=== PATIENT | male | born 1940 | race African-American/Black ===

== ENCOUNTER 2019-09-20 14:56 | Inpatient (IN) | payer MEDICARE, BC ==
[~2019-09-20] VITALS: Ht 185.4 cm; Wt 89.8 kg
[2019-09-20 15:20] VITALS: BP 106/72
--- NOTE | 2019-09-20 15:27 | Emergency Room Report ---
History of Present Illness General Chief Complaint: Chest Pain Source: Patient Present Illness HPI Disclaimer: Please note that this report is being documented using [employer] technology. This can lead to erroneous entry secondary to incorrect interpretation by the dictating instrument. HPI: 79-year-old male with a past history of aortic valve cyst status post repair, perforated gastric ulcer status post repair presents for evaluation of chest and abdominal pain. Patient states for the past 3 weeks he has been having intermittent right-sided upper quadrant abdominal pain made worse by eating. Pain will also come sporadically describes a 10/10 sharp stabbing pain and a burning sensation similar to his prior gastric ulcer which was repaired over 40 years ago. States his ulcer was perforated. He reports several episodes of emesis yesterday with small bright red blood and clots. He is using Maalox and Tums but is no longer taking Pepcid. He reports a lot of stress recently. Denies changes in diet aside from decreased appetite over the past few weeks due to the abdominal pain. He is also complaining of a tightness in his chest that is worse at night when laying down. He describes any exertional dyspnea, exertional chest pain, syncope, palpitations. States he had a "cyst" removed from his aortic valve many years ago but otherwise denies aortic pathology, cardiac history. Denies recent fever, chills, nasal congestion, sore throat, diarrhea, dysuria, hematuria or flank pain. Does not take anticoagulants. PMH: Gastric ulcer, aortic valve surgery. 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 EOMI. Cardiovascular: RRR. S1 and S2 normal. No murmur appreciated Resp: Normal work of breathing. No cough, wheezing or crackles appreciated Abdomen: Abdomen is soft, nondistended. Nontender, no guarding, no rebound, negative Oswald's. Skin: Intact. No abrasions, laceration or rash over the exposed skin MSK: Normal tone and bulk. Moving all extremities. No obvious deformity. Neuro: Awake and alert. Mentating appropriately. Medical Decision Making Diagnostic Impression: Primary Impression: GI bleed Additional Impression: Cholecystitis ER Course Is an 79-year-old male presenting for evaluation of chest and abdominal pain. Differential includes was not limited to gastritis, gastroenteritis, pancreatitis, cholecystitis, gastric ulcer, duodenal ulcer, perforated ulcer, esophagitis, GERD, ACS, angina, Claudia-Starr tear, Boerhaave syndrome to name a few. He is well-appearing arrives with stable vital signs. Currently he denies abdominal pain and belly is soft. Have ordered broad work-up with labs and CT imaging of the torso to evaluate for perforated ulcer or aortic abnormalities. Anticipate the patient require admission. Treated with Protonix , IV fluids, antiemetics, Pepcid 1830: CT does not show evidence of perforated ulcer but does show possible pericholecystic stranding without radiopaque gallstones identified. Concern for cholecystitis as the patient is complaining of right upper quadrant kayli pain will obtain an ultrasound. Labs also show a Normocytic anemia at 9.0. Stool is melanotic and FOBT positive. May have a recurrent ulcer. He has been feeling lightheaded when standing recently. Chemistry shows slightly of elevated creatinine just above baseline at 1.4 with a BUN of 33. Total bili slightly elevated at 1.1. Troponin within normal limits as is lipase. Urinalysis does not show signs of acute urinary tract infection. Will admit for GI bleed to panel physician, Dr. Danielle. Laboratory Tests Test 09/20/19 15:45 09/20/19 16:10 White Blood Count 7.7 K/UL (4.8-10.8) Red Blood Count 2.89 M/UL (4.70-6.10) L Hemoglobin 9.0 G/DL (14.2-18.0) L Hematocrit 27.2 % (42.0-52.0) L Mean Corpuscular Volume 94 FL (80-99) Mean Corpuscular Hemoglobin 31.0 PG (27.0-31.0) Mean Corpuscular Hemoglobin Concent 33.0 G/DL (32.0-36.0) Red Cell Distribution Width 13.3 % (11.6-14.8) Platelet Count 225 K/UL (150-450) Mean Platelet Volume 6.6 FL (6.5-10.1) Neutrophils (%) (Auto) 78.4 % (45.0-75.0) H Lymphocytes (%) (Auto) 15.2 % (20.0-45.0) L Monocytes (%) (Auto) 5.9 % (1.0-10.0) Eosinophils (%) (Auto) 0.1 % (0.0-3.0) Basophils (%) (Auto) 0.4 % (0.0-2.0) Prothrombin Time 10.5 SEC (9.30-11.50) Prothrombin Time INR 0.9 (0.9-1.1) Activated Partial Thromboplast Time 21 SEC (23-33) L Sodium Level 136 MMOL/L (136-145) Potassium Level 4.0 MMOL/L (3.5-5.1) Chloride Level 102 MMOL/L (98-107) Carbon Dioxide Level 26 MMOL/L (21-32) Anion Gap 8 mmol/L (5-15) Blood Urea Nitrogen 33 mg/dL (7-18) H Creatinine 1.4 MG/DL (0.55-1.30) H Estimated Glomerular Filtration Rate 59.1 mL/min (>60) Glucose Level 107 MG/DL (74-106) H Calcium Level 8.2 MG/DL (8.5-10.1) L Total Bilirubin 1.1 MG/DL (0.2-1.0) H Direct Bilirubin 0.2 MG/DL (0.0-0.3) Aspartate Amino Transferase (AST) 18 U/L (15-37) Alanine Aminotransferase (ALT) 20 U/L (12-78) Alkaline Phosphatase 49 U/L (46-116) Troponin I 0.015 ng/mL (0.000-0.056) Pro-B-Type Natriuretic Peptide 82 pg/mL (0-125) Total Protein 6.0 G/DL (6.4-8.2) L Albumin 3.2 G/DL (3.4-5.0) L Globulin 2.8 g/dL Albumin/Globulin Ratio 1.1 (1.0-2.7) Lipase 75 U/L (73-393) Urine Color Pale yellow Urine Appearance Slightly cloudy Urine pH 5 (4.5-8.0) Urine Specific [place] 1.015 (1.005-1.035) Urine Protein Negative (NEGATIVE) Urine Glucose (UA) Negative (NEGATIVE) Urine Ketones 2+ (NEGATIVE) H Urine Blood Negative (NEGATIVE) Urine Nitrite Negative (NEGATIVE) Urine Bilirubin Negative (NEGATIVE) Urine Urobilinogen Normal MG/DL (0.0-1.0) Urine Leukocyte Esterase Negative (NEGATIVE) EKG Diagnostic Results EKG Time: 15:09 Rate: normal Rhythm: NSR Other Impression Sinus rhythm, normal axis, normal intervals, no ST segment changes. Rhythm Strip Diag. Results Rhythm Strip Time: 15:09 EP Interpretation: yes Rate: 70s Rhythm: NSR, no PVC's, no ectopy CT/MRI/US Diagnostic Results CT/MRI/US Diagnostic Results : Impression Final Report EXAM: CT Chest With Intravenous Contrast CLINICAL HISTORY: chest and abdominal pain. TECHNIQUE: Axial computed tomography images of the chest with intravenous contrast. CTDI is 72 mGy and DLP is 564 mGy-cm. One or more of the following dose reduction techniques were used: automated exposure control, adjustment of the mA and/or kV according to patient size, use of iterative reconstruction technique. COMPARISON: No relevant prior studies available. FINDINGS: Lungs: No focal consolidation. Emphysematous lung changes. Pleural space: Unremarkable. No pneumothorax. No significant effusion. Heart: Unremarkable. Thyroid: Thyroid nodules. Bones/joints: Sternotomy. Soft tissues: Unremarkable. Vasculature: Unremarkable. Lymph nodes: Unremarkable. IMPRESSION: No focal consolidation. Emphysematous lung changes. EXAM: CT Abdomen and Pelvis With Intravenous Contrast CLINICAL HISTORY: chest and abdominal pain. TECHNIQUE: Axial computed tomography images of the abdomen and pelvis with intravenous contrast. CTDI is 72 mGy and DLP is 564 mGy-cm. One or more of the following dose reduction techniques were used: automated exposure control, adjustment of the mA and/or kV according to patient size, use of iterative reconstruction technique. COMPARISON: No relevant prior studies available. FINDINGS: ABDOMEN: Liver: Hepatic cysts. Gallbladder and bile ducts: No radiopaque cholelithiasis. Possible minimal pericholecystic stranding versus artifact. Correlate clinically for cholecystitis. Pancreas: Unremarkable. Spleen: Unremarkable. Adrenals: Unremarkable. Kidneys and ureters: No hydronephrosis. Renal cysts. Stomach and bowel: Mildly thickened bowel which may be underdistention versus enteritis/colitis. No bowel obstruction or diverticulitis. PELVIS: Appendix: No findings to suggest acute appendicitis. Bladder: Unremarkable. Reproductive: Unremarkable as visualized. ABDOMEN and PELVIS: Intraperitoneal space: No free air. Bones/joints: No acute fracture. Soft tissues: Unremarkable. Vasculature: Atherosclerosis. No aortic dissection or aneurysm. Lymph nodes: Unremarkable. IMPRESSION: 1. No radiopaque cholelithiasis. Possible minimal pericholecystic stranding versus artifact. Correlate clinically for cholecystitis. 2. Mildly thickened bowel which may be underdistention versus enteritis/ colitis. No bowel obstruction or diverticulitis. Radiologist: Orlin Guzman M.D. Electronically Signed: 09/20/19 18:29 Study ready at 18:02 and initial results transmitted at 18:29 Disposition: ADMITTED INPATIENT Condition: Serious Scripts No Active Prescriptions or Reported Meds Papo Field MD Sep 20, 2019 15:27
[2019-09-20] MEDS ORDERED: Pantoprazole Inj IV ONE (15:30)
[2019-09-20] MEDS ORDERED: Omnipaque-300 100ml vial INJ ONE (15:30)
--- NOTE | 2019-09-20 16:14 | Diagnostic Imaging Report ---
Procedure: XRAY Chest 1v Reason for study: Chest pain. Comparison films: None. FINDINGS: Patient status post CABG. Vascularity is normal. The lung albarran are clear bilaterally. Cardiac and mediastinal silhouette are within normal limits. CP angles are sharp. The bony thorax appear unremarkable. IMPRESSION: NO ACUTE CARDIOPULMONARY DISEASE.
[2019-09-20 16:15] LABS: BASOPHILS % (AUTO) 0.4 % (0.0-2.0); EOSINOPHILS % (AUTO) 0.1 % (0.0-3.0); HEMATOCRIT 27.2 % (42.0-52.0); LYMPHOCYTES % (AUTO) 15.2 % (20.0-45.0); MEAN CORPUSCULAR VOLUME 94 FL (80-99); MONOCYTES % (AUTO) 5.9 % (1.0-10.0); NEUTROPHILS % (AUTO) 78.4 % (45.0-75.0); PLATELET COUNT 225 K/UL (150-450); RED BLOOD COUNT 2.89 M/UL (4.70-6.10); RED CELL DISTRIBUTION WIDTH 13.3 % (11.6-14.8); WHITE BLOOD COUNT 7.7 K/UL (4.8-10.8)
[2019-09-20 16:34] LABS: INR 0.9 (0.9-1.1)
[2019-09-20 16:39] LABS: APPEARANCE,URINE SLIGHTLY CLOUDY; BILIRUBIN, URINE NEGATIVE (NEGATIVE); COLOR,URINE PALE YELLOW; GLUCOSE, URINE (UA) NEGATIVE (NEGATIVE); KETONES,URINE 2+ (NEGATIVE); LEUKOCYTE ESTERASE ,URINE NEGATIVE (NEGATIVE); NITRITE,URINE NEGATIVE (NEGATIVE); PH,URINE 5 (4.5-8.0); PROTEIN,URINE NEGATIVE (NEGATIVE); UROBILINOGEN,URINE NORMAL MG/DL (0.0-1.0)
[2019-09-20 16:43] LABS: ANION GAP 8 mmol/L (5-15); BLOOD UREA NITROGEN 33 mg/dL (7-18); CALCIUM 8.2 MG/DL (8.5-10.1); CARBON DIOXIDE 26 MMOL/L (21-32); CHLORIDE 102 MMOL/L (98-107); CREATININE 1.4 MG/DL (0.55-1.30); SODIUM 136 MMOL/L (136-145)
[2019-09-20 16:56] LABS: ALANINE AMINOTRANSFERASE 20 U/L (12-78); ALBUMIN 3.2 G/DL (3.4-5.0); ALBUMIN/GLOBULIN RATIO 1.1 (1.0-2.7); ALKALINE PHOSPHATASE 49 U/L (46-116); ASPARTATE AMINO TRANSFERASE 18 U/L (15-37); BILIRUBIN,TOTAL 1.1 MG/DL (0.2-1.0)
[2019-09-20 16:58] LABS: BILIRUBIN,DIRECT 0.2 MG/DL (0.0-0.3)
[2019-09-20 17:14] VITALS: BP 110/76
[2019-09-20] MEDS ORDERED: Morphine Sulfate 4mg/ml Inj (IV USE ONLY) IVP ONE (18:15)
--- NOTE | 2019-09-20 18:30 | Diagnostic Imaging Report ---
EXAM: CT Chest With Intravenous Contrast CLINICAL HISTORY: chest and abdominal pain. TECHNIQUE: Axial computed tomography images of the chest with intravenous contrast. CTDI is 72 mGy and DLP is 564 mGy-cm. One or more of the following dose reduction techniques were used: automated exposure control, adjustment of the mA and/or kV according to patient size, use of iterative reconstruction technique. COMPARISON: No relevant prior studies available. FINDINGS: Lungs: No focal consolidation. Emphysematous lung changes. Pleural space: Unremarkable. No pneumothorax. No significant effusion. Heart: Unremarkable. Thyroid: Thyroid nodules. Bones/joints: Sternotomy. Soft tissues: Unremarkable. Vasculature: Unremarkable. Lymph nodes: Unremarkable. IMPRESSION: No focal consolidation. Emphysematous lung changes. EXAM: CT Abdomen and Pelvis With Intravenous Contrast CLINICAL HISTORY: chest and abdominal pain. TECHNIQUE: Axial computed tomography images of the abdomen and pelvis with intravenous contrast. CTDI is 72 mGy and DLP is 564 mGy-cm. One or more of the following dose reduction techniques were used: automated exposure control, adjustment of the mA and/or kV according to patient size, use of iterative reconstruction technique. COMPARISON: No relevant prior studies available. FINDINGS: ABDOMEN: Liver: Hepatic cysts. Gallbladder and bile ducts: No radiopaque cholelithiasis. Possible minimal pericholecystic stranding versus artifact. Correlate clinically for cholecystitis. Pancreas: Unremarkable. Spleen: Unremarkable. Adrenals: Unremarkable. Kidneys and ureters: No hydronephrosis. Renal cysts. Stomach and bowel: Mildly thickened bowel which may be underdistention versus enteritis/colitis. No bowel obstruction or diverticulitis. PELVIS: Appendix: No findings to suggest acute appendicitis. Bladder: Unremarkable. Reproductive: Unremarkable as visualized. ABDOMEN and PELVIS: Intraperitoneal space: No free air. Bones/joints: No acute fracture. Soft tissues: Unremarkable. Vasculature: Atherosclerosis. No aortic dissection or aneurysm. Lymph nodes: Unremarkable. IMPRESSION: 1. No radiopaque cholelithiasis. Possible minimal pericholecystic stranding versus artifact. Correlate clinically for cholecystitis. 2. Mildly thickened bowel which may be underdistention versus enteritis/colitis. No bowel obstruction or diverticulitis.
[2019-09-20] MEDS ORDERED: Piperacillin/Tazobactam 4.5 GM in NS 110 ML IVPB ONE (18:45)
--- NOTE | 2019-09-20 20:13 | Diagnostic Imaging Report ---
EXAM: US Abdomen Complete CLINICAL HISTORY: ABD PAIN TECHNIQUE: Real-time ultrasound of the abdomen with image documentation. COMPARISON: 09/20/2019 CT. FINDINGS: Liver: Hepatic cysts. Gallbladder: No cholelithiasis or evidence of acute cholecystitis. Common bile duct: CBD 2 mm. Pancreas: Unremarkable as visualized. Kidneys: No hydronephrosis. Renal cysts. Spleen: Spleen obscured. Aorta: Unremarkable as visualized. Inferior vena cava: Unremarkable as visualized. IMPRESSION: No cholelithiasis or evidence of acute cholecystitis.
[2019-09-20 21:00] VITALS: BP 124/71
[2019-09-20] MEDS ORDERED: Miralax 17gm pkt ORAL PRN (21:15)
[2019-09-20] MEDS ORDERED: Nitroglycerin Subl 0.4mg tab SL PRN (21:15)
[2019-09-20] MEDS ORDERED: DiphenhydrAMINE 25mg Tab ORAL PRN (21:15)
[2019-09-20 21:29] LABS: CREATINE KINASE 89 U/L (26-308)
[2019-09-20] MEDS ORDERED: NORVASC10 MG ORAL (21:31)
[2019-09-20] MEDS: D5 1/2NS 1,000 ML IV SCH (21:39)
[2019-09-21] VITALS (10 sets, daily range): BP systolic 99–137; BP diastolic 43–68
[2019-09-21 07:49] LABS: HEMATOCRIT 24.6 % (42.0-52.0); HEMOGLOBIN 7.9 G/DL (14.2-18.0); MEAN CORPUSCULAR VOLUME 96 FL (80-99); PLATELET COUNT 210 K/UL (150-450); RED BLOOD COUNT 2.57 M/UL (4.70-6.10); RED CELL DISTRIBUTION WIDTH 13.8 % (11.6-14.8); WHITE BLOOD COUNT 6.8 K/UL (4.8-10.8)
[2019-09-21 08:00] LABS: LACTATE DEHYDROGENASE 120 U/L (81-234); PHOSPHORUS 3.4 MG/DL (2.5-4.9)
[2019-09-21 08:01] LABS: ALANINE AMINOTRANSFERASE 20 U/L (12-78); ALBUMIN 2.9 G/DL (3.4-5.0); ALBUMIN/GLOBULIN RATIO 1.1 (1.0-2.7); ALKALINE PHOSPHATASE 47 U/L (46-116); AMYLASE 42 U/L (25-115); ANION GAP 5 mmol/L (5-15); ASPARTATE AMINO TRANSFERASE 19 U/L (15-37); BILIRUBIN,TOTAL 0.9 MG/DL (0.2-1.0); BLOOD UREA NITROGEN 23 mg/dL (7-18); CALCIUM 7.7 MG/DL (8.5-10.1); CARBON DIOXIDE 27 MMOL/L (21-32); CHLORIDE 105 MMOL/L (98-107); CREATININE 1.8 MG/DL (0.55-1.30); POTASSIUM 3.7 MMOL/L (3.5-5.1); SODIUM 137 MMOL/L (136-145)
[2019-09-21 08:06] LABS: % IRON SATURATION 21 % (15-50); IRON 55 ug/dL (50-175); TOTAL IRON BINDING CAPACITY 262 ug/dL (250-450)
[2019-09-21] MEDS ORDERED: Pantoprazole Inj IVP SCH (09:00)
[2019-09-21] MEDS: Morphine Sulfate 2mg/ml Inj(IV/IM USE ONLY) IVP PRN (09:43)
[2019-09-21] MEDS: Heparin 5000 units/ml inj SUBQ SCH ×2 (09:45→20:56)
[2019-09-21] MEDS: D5 1/2NS 1,000 ML IV SCH (10:50)
--- NOTE | 2019-09-21 13:20 | Consultation ---
History of Present Illness General Date patient seen: Sep 21, 2019 Chief Complaint: Chest Pain Present Illness HPI 79-year-old male with a PMHx of perforated gastric ulcer (repaired 40 years ago ) presented to ER for evaluation of chest and abdominal pain for the past 3 weeks. He had several episodes of emesis yesterday with small bright red blood and clots. He is also complaining of a tightness in his chest that is worse at night when laying down. Denies recent fever, chills, nasal congestion , sore throat, diarrhea, dysuria, hematuria or flank pain. He had a CT of chest /abdomen/pelvis in ER, which was basically negative. Allergies: Coded Allergies: No Known Allergies (Unverified , 09/20/19) Medication History Scheduled Amlodipine Besylate (Norvasc), 10 MG ORAL DAILY, (Reported) Patient History Healthcare decision maker Resuscitation status Advanced Directive on File Past Medical/Surgical History Past Medical/Surgical History: (1) Bullous emphysema (2) History of gastric ulcer Review of Systems All Other Systems: negative except mentioned in HPI Physical Exam General Appearance: no apparent distress, alert Lines, tubes and drains: peripheral HEENT: normocephalic, atraumatic Neck: non-tender, normal alignment Respiratory/Chest: chest wall non-tender, lungs clear, normal breath sounds Cardiovascular/Chest: normal peripheral pulses, normal rate, regular rhythm Abdomen: normal bowel sounds, non tender Genitourinary/Rectal: normal genital exam, normal rectal exam Extremities: normal range of motion Neurologic: front end manager II-XII grossly normal Last 24 Hour Vital Signs Date Time Temp Pulse Resp B/P (MAP) Pulse Ox O2 Delivery O2 Flow Rate FiO2 09/21/19 12:00 97.0 57 18 121/65 (83) 100 09/21/19 09:43 63 137/57 09/21/19 09:00 Room Air 09/21/19 08:00 97.6 63 18 137/57 (83) 100 09/21/19 04:00 97.3 55 16 99/43 (61) 100 09/21/19 00:00 97.3 66 18 106/65 (79) 98 09/20/19 23:21 Room Air 09/20/19 22:35 Room Air 09/20/19 21:00 97.7 88 20 124/71 (88) 100 09/20/19 20:50 82 18 134/85 98 Room Air 09/20/19 17:14 97.9 73 18 110/76 100 09/20/19 15:20 72 16 09/20/19 15:20 97.8 72 16 106/72 99 Intake and Output 09/20/19 09/21/19 19:00 07:00 Intake Total 750 ml Output Total 200 ml Balance 550 ml Intake Oral 75 ml IV Total 675 ml Output Urine Total 200 ml # Voids 4 Laboratory Tests Test 09/20/19 15:45 09/20/19 16:10 09/21/19 07:15 White Blood Count 7.7 K/UL (4.8-10.8) 6.8 K/UL (4.8-10.8) Red Blood Count 2.89 M/UL (4.70-6.10) L 2.57 M/UL (4.70-6.10) L Hemoglobin 9.0 G/DL (14.2-18.0) L 7.9 G/DL (14.2-18.0) L Hematocrit 27.2 % (42.0-52.0) L 24.6 % (42.0-52.0) L Mean Corpuscular Volume 94 FL (80-99) 96 FL (80-99) Mean Corpuscular Hemoglobin 31.0 PG (27.0-31.0) 31.0 PG (27.0-31.0) Mean Corpuscular Hemoglobin Concent 33.0 G/DL (32.0-36.0) 32.3 G/DL (32.0-36.0) Red Cell Distribution Width 13.3 % (11.6-14.8) 13.8 % (11.6-14.8) Platelet Count 225 K/UL (150-450) 210 K/UL (150-450) Mean Platelet Volume 6.6 FL (6.5-10.1) 5.9 FL (6.5-10.1) L Neutrophils (%) (Auto) 78.4 % (45.0-75.0) H % (45.0-75.0) Lymphocytes (%) (Auto) 15.2 % (20.0-45.0) L % (20.0-45.0) Monocytes (%) (Auto) 5.9 % (1.0-10.0) % (1.0-10.0) Eosinophils (%) (Auto) 0.1 % (0.0-3.0) % (0.0-3.0) Basophils (%) (Auto) 0.4 % (0.0-2.0) % (0.0-2.0) Prothrombin Time 10.5 SEC (9.30-11.50) 10.7 SEC (9.30-11.50) Prothromb Time International Ratio 0.9 (0.9-1.1) 1.0 (0.9-1.1) Activated Partial Thromboplast Time 21 SEC (23-33) L 22 SEC (23-33) L Sodium Level 136 MMOL/L (136-145) 137 MMOL/L (136-145) Potassium Level 4.0 MMOL/L (3.5-5.1) 3.7 MMOL/L (3.5-5.1) Chloride Level 102 MMOL/L (98-107) 105 MMOL/L (98-107) Carbon Dioxide Level 26 MMOL/L (21-32) 27 MMOL/L (21-32) Anion Gap 8 mmol/L (5-15) 5 mmol/L (5-15) Blood Urea Nitrogen 33 mg/dL (7-18) H 23 mg/dL (7-18) H Creatinine 1.4 MG/DL (0.55-1.30) H 1.8 MG/DL (0.55-1.30) H Estimat Glomerular Filtration Rate 59.1 mL/min (>60) 44.2 mL/min (>60) Glucose Level 107 MG/DL (74-106) H 106 MG/DL (74-106) Uric Acid 4.8 MG/DL (2.6-7.2) Calcium Level 8.2 MG/DL (8.5-10.1) L 7.7 MG/DL (8.5-10.1) L Total Bilirubin 1.1 MG/DL (0.2-1.0) H 0.9 MG/DL (0.2-1.0) Direct Bilirubin 0.2 MG/DL (0.0-0.3) Aspartate Amino Transf (AST/SGOT) 18 U/L (15-37) 19 U/L (15-37) Alanine Aminotransferase (ALT/SGPT) 20 U/L (12-78) 20 U/L (12-78) Alkaline Phosphatase 49 U/L (46-116) 47 U/L (46-116) Total Creatine Kinase 89 U/L (26-308) Troponin I 0.015 ng/mL (0.000-0.056) Pro-B-Type Natriuretic Peptide 82 pg/mL (0-125) Total Protein 6.0 G/DL (6.4-8.2) L 5.5 G/DL (6.4-8.2) L Albumin 3.2 G/DL (3.4-5.0) L 2.9 G/DL (3.4-5.0) L Globulin 2.8 g/dL 2.6 g/dL Albumin/Globulin Ratio 1.1 (1.0-2.7) 1.1 (1.0-2.7) Lipase 75 U/L (73-393) 95 U/L (73-393) Urine Color Pale yellow Urine Appearance Slightly cloudy Urine pH 5 (4.5-8.0) Urine Specific [place] 1.015 (1.005-1.035) Urine Protein Negative (NEGATIVE) Urine Glucose (UA) Negative (NEGATIVE) Urine Ketones 2+ (NEGATIVE) H Urine Blood Negative (NEGATIVE) Urine Nitrite Negative (NEGATIVE) Urine Bilirubin Negative (NEGATIVE) Urine Urobilinogen Normal MG/DL (0.0-1.0) Urine Leukocyte Esterase Negative (NEGATIVE) Urine Eosinophils None seen (NONE SEEN) Urine Random Sodium 27 mmol/L (20-110) Urine Potassium Timed 55 mmol/L (12-62) Differential Total Cells Counted 100 Neutrophils % (Manual) 52 % (45-75) Lymphocytes % (Manual) 36 % (20-45) Monocytes % (Manual) 8 % (1-10) Eosinophils % (Manual) 3 % (0-3) Basophils % (Manual) 1 % (0-2) Band Neutrophils 0 % (0-8) Platelet Estimate Adequate Platelet Morphology Normal Hypochromasia 3+ Anisocytosis 1+ Erythrocyte Sedimentation Rate 22 MM/HR (0-20) H Reticulocyte Count 2.7 % (0.5-2.0) H Phosphorus Level 3.4 MG/DL (2.5-4.9) Magnesium Level 2.2 MG/DL (1.8-2.4) Iron Level 55 ug/dL (50-175) Total Iron Binding Capacity 262 ug/dL (250-450) Percent Iron Saturation 21 % (15-50) Unsaturated Iron Binding 207 ug/dL (112-346) Lactate Dehydrogenase 120 U/L (81-234) C-Reactive Protein, Quantitative < 0.4 mg/dL (0.00-0.90) Amylase Level 42 U/L (25-115) Carcinoembryonic Antigen Pending Vitamin B12 Level 890 PG/ML (193-986) Folate 18.4 NG/ML (8.6-58.9) Height (Feet): 6 Height (Inches): 1.00 Weight (Pounds): 183 Medications Current Medications Medications (Trade) Dose Ordered Sig/Iona Route PRN Reason Start Time Stop Time Status Last Admin Dose Admin Acetaminophen (Tylenol) 650 mg Q4H PRN ORAL fever 09/20/19 21:15 10/20/19 21:14 Amlodipine Besylate (Norvasc) 10 mg DAILY ORAL 09/21/19 09:00 10/21/19 08:59 09/21/19 09:43 Dextrose (Dextrose 50%) 25 ml Q30M PRN IV Hypoglycemia 09/20/19 21:15 12/19/19 21:14 Dextrose (Dextrose 50%) 50 ml Q30M PRN IV Hypoglycemia 09/20/19 21:15 12/19/19 21:14 Dextrose/Sodium Chloride 1,000 ml @ 75 mls/hr [id number] IV 09/20/19 22:00 10/20/19 21:59 09/21/19 10:50 Diphenhydramine HCl (Benadryl) 25 mg Q6H PRN ORAL Itching/Pruritis 09/20/19 21:15 10/20/19 21:14 Heparin Sodium (Porcine) (Heparin 5000 units/ml) 5,000 units EVERY 12 HOURS SUBQ 09/21/19 09:00 11/05/19 08:59 09/21/19 09:45 Morphine Sulfate (Morphine Sulfate) 2 mg Q4H PRN IVP For Pain 09/20/19 23:15 09/27/19 23:14 09/21/19 09:43 Nitroglycerin (Ntg) 0.4 mg Q5M X 3 DOSES PRN SL Prn Chest Pain 09/20/19 21:15 10/20/19 21:14 Ondansetron HCl (Zofran) 4 mg Q6H PRN IVP Nausea & Vomiting 09/20/19 21:15 10/20/19 21:14 Pantoprazole (Protonix) 40 mg DAILY IVP 09/21/19 09:00 10/21/19 08:59 09/21/19 09:43 Polyethylene Glycol (Miralax) 17 gm HSPRN PRN ORAL Constipation 09/20/19 21:15 10/20/19 21:14 Temazepam (Restoril) 15 mg HSPRN PRN ORAL Insomnia 09/20/19 21:15 09/27/19 21:14 09/20/19 22:47 Assessment/Plan Problem List: (1) Upper GI bleeding ICD Codes: K92.2 - Gastrointestinal hemorrhage, unspecified SNOMED: 13320990 (2) Intractable abdominal pain ICD Codes: R10.9 - Unspecified abdominal pain SNOMED: 79686691 (3) History of gastric ulcer ICD Codes: Z87.19 - Personal history of other diseases of the digestive system SNOMED: 302684651 (4) Bullous emphysema ICD Codes: J43.9 - Emphysema, unspecified SNOMED: 999469928 Assessment/Plan: NPO IV fluids H2 blockers GI evaluation for possible endoscopy prbc prn anemia w/u symptomatic treatment. Shaunna Cueva MD Sep 21, 2019 13:20
--- NOTE | 2019-09-21 14:29 | Pre-Procedure Note/Attestation ---
Pre-Procedure Note/Attestation Complete Prior to Procedure Planned Procedure: not applicable Procedure Narrative: egd Indications for Procedure Pre-Operative Diagnosis: gib Attestation I attest that I discussed the nature of the procedure; its benefits; risks and complications; and alternatives (and the risks and benefits of such alternatives ), prior to the procedure, with the patient (or the patient's legal licensing representative). I attest that, if there was a reasonable possibility of needing a blood transfusion, the patient (or the patient's legal licensing representative) was given the [facility] standardized written summary, pursuant to the [employer] [place] Blood Safety Act ([place] Health and Safety Code # 1645, as amended). I attest that I re-evaluated the patient just prior to the surgery and that there has been no change in the patient's H&P, except as documented below: Primo Unger MD Sep 21, 2019 14:29
[2019-09-21] MEDS ORDERED: NS 500ML IVPB ONE (14:45)
--- NOTE | 2019-09-21 14:56 | Endoscopy Procedure Note ---
Endoscopy Procedure Note General Indication for Procedure: GIB Procedures Performed: EGD Operative Findings/Diagnosis: DU Specimen: yes Pt Tolerated Procedure Well: Yes Estimated Blood Loss: none Anesthesia Anesthesiologist: cheng Anesthesia: MAC Inserted Devices Implant(s) used?: No GI Core Measures 50 yrs or older w/o bx or poly: Not Applicable 10yrs. F/U recommended: Not Applicable Primo Unger MD Sep 21, 2019 14:56
[2019-09-21] MEDS ORDERED: fentaNYL 100 mcg/2 mL IV ONE (15:00)
--- NOTE | 2019-09-21 15:07 | Anethesia Preoperative Eval ---
Anesthesia Pre-op PMH/ROS General Date of Evaluation: Sep 21, 2019 Time of Evaluation: 14:40 Anesthesiologist: Nader ASA Score: ASA 3 Mallampati Score Class I : Soft palate, uvula, fauces, pillars visible Class II: Soft palate, uvula, fauces visible Class III: Soft palate, base of uvula visible Class IV: Only hard plate visible Mallampati Classification: Class II Surgeon: Cornel Diagnosis: Abdominal pain Surgical Procedure: EGD Anesthesia History: none Family History: no anesthesia problems Allergies: Coded Allergies: No Known Allergies (Unverified , 09/20/19) Medications: see eMAR Patient NPO?: Yes Past Medical History Cardiovascular: Reports: HTN, CAD - s/p CABG, valve dz - Aortic valve replacement; Denies: ID, arrhythmia, other Pulmonary: Denies: asthma, COPD, RADHIKA, other Gastrointestinal/Genitourinary: Reports: GERD, other - H/o perforated ulcer; Denies: CRI, ESRD Neurologic/Psychiatric: Reports: depression/anxiety; Denies: dementia, CVA, TIA, other Endocrine: Reports: hypothyroidism; Denies: DM, steroids, other HEENT: Denies: cataract (L), cataract (R), glaucoma, MANZANITA (L), MANZANITA (R), other Hematology/Immune: Reports: anemia - posthemorrhagic; Denies: DVT, bleeding disorder, other Musculoskeletal/Integumentary: Denies: OA, RA, DJD, DDD, edema, other PMH Narrative: as above PSxH Narrative: see H&P Anesthesia Pre-op Phys. Exam Physician Exam Last Vital Signs Date Time Temp Pulse Resp B/P (MAP) Pulse Ox O2 Delivery O2 Flow Rate FiO2 09/21/19 12:00 97.0 57 18 121/65 (83) 100 09/21/19 09:00 Room Air Constitutional: NAD Neurologic: CN 2-12 intact Cardiovascular: RRR, no M/R/G Respiratory: CTA Gastrointestinal: S/NT/ND Airway Exam Mallampati Score: Class II MO: limited Neck: stiff ROM: limited Teeth: missing Dentures: upper - partials, lower Anesthesia Pre-op A/P Labs Hematology Test 09/20/19 15:45 09/21/19 07:15 White Blood Count 7.7 K/UL (4.8-10.8) 6.8 K/UL (4.8-10.8) Red Blood Count 2.89 M/UL (4.70-6.10) L 2.57 M/UL (4.70-6.10) L Hemoglobin 9.0 G/DL (14.2-18.0) L 7.9 G/DL (14.2-18.0) L Hematocrit 27.2 % (42.0-52.0) L 24.6 % (42.0-52.0) L Mean Corpuscular Volume 94 FL (80-99) 96 FL (80-99) Mean Corpuscular Hemoglobin 31.0 PG (27.0-31.0) 31.0 PG (27.0-31.0) Mean Corpuscular Hemoglobin Concent 33.0 G/DL (32.0-36.0) 32.3 G/DL (32.0-36.0) Red Cell Distribution Width 13.3 % (11.6-14.8) 13.8 % (11.6-14.8) Platelet Count 225 K/UL (150-450) 210 K/UL (150-450) Mean Platelet Volume 6.6 FL (6.5-10.1) 5.9 FL (6.5-10.1) L Neutrophils (%) (Auto) 78.4 % (45.0-75.0) H % (45.0-75.0) Lymphocytes (%) (Auto) 15.2 % (20.0-45.0) L % (20.0-45.0) Monocytes (%) (Auto) 5.9 % (1.0-10.0) % (1.0-10.0) Eosinophils (%) (Auto) 0.1 % (0.0-3.0) % (0.0-3.0) Basophils (%) (Auto) 0.4 % (0.0-2.0) % (0.0-2.0) Differential Total Cells Counted 100 Neutrophils % (Manual) 52 % (45-75) Lymphocytes % (Manual) 36 % (20-45) Monocytes % (Manual) 8 % (1-10) Eosinophils % (Manual) 3 % (0-3) Basophils % (Manual) 1 % (0-2) Band Neutrophils 0 % (0-8) Platelet Estimate Adequate Platelet Morphology Normal Hypochromasia 3+ Anisocytosis 1+ Erythrocyte Sedimentation Rate 22 MM/HR (0-20) H Reticulocyte Count 2.7 % (0.5-2.0) H Coagulation Test 09/20/19 15:45 09/21/19 07:15 Prothrombin Time 10.5 SEC (9.30-11.50) 10.7 SEC (9.30-11.50) Prothromb Time International Ratio 0.9 (0.9-1.1) 1.0 (0.9-1.1) Activated Partial Thromboplast Time 21 SEC (23-33) L 22 SEC (23-33) L Chemistry Test 09/20/19 15:45 09/21/19 07:15 Sodium Level 136 MMOL/L (136-145) 137 MMOL/L (136-145) Potassium Level 4.0 MMOL/L (3.5-5.1) 3.7 MMOL/L (3.5-5.1) Chloride Level 102 MMOL/L (98-107) 105 MMOL/L (98-107) Carbon Dioxide Level 26 MMOL/L (21-32) 27 MMOL/L (21-32) Anion Gap 8 mmol/L (5-15) 5 mmol/L (5-15) Blood Urea Nitrogen 33 mg/dL (7-18) H 23 mg/dL (7-18) H Creatinine 1.4 MG/DL (0.55-1.30) H 1.8 MG/DL (0.55-1.30) H Estimat Glomerular Filtration Rate 59.1 mL/min (>60) 44.2 mL/min (>60) Glucose Level 107 MG/DL (74-106) H 106 MG/DL (74-106) Uric Acid 4.8 MG/DL (2.6-7.2) Calcium Level 8.2 MG/DL (8.5-10.1) L 7.7 MG/DL (8.5-10.1) L Total Bilirubin 1.1 MG/DL (0.2-1.0) H 0.9 MG/DL (0.2-1.0) Direct Bilirubin 0.2 MG/DL (0.0-0.3) Aspartate Amino Transf (AST/SGOT) 18 U/L (15-37) 19 U/L (15-37) Alanine Aminotransferase (ALT/SGPT) 20 U/L (12-78) 20 U/L (12-78) Alkaline Phosphatase 49 U/L (46-116) 47 U/L (46-116) Total Creatine Kinase 89 U/L (26-308) Troponin I 0.015 ng/mL (0.000-0.056) Pro-B-Type Natriuretic Peptide 82 pg/mL (0-125) Total Protein 6.0 G/DL (6.4-8.2) L 5.5 G/DL (6.4-8.2) L Albumin 3.2 G/DL (3.4-5.0) L 2.9 G/DL (3.4-5.0) L Globulin 2.8 g/dL 2.6 g/dL Albumin/Globulin Ratio 1.1 (1.0-2.7) 1.1 (1.0-2.7) Lipase 75 U/L (73-393) 95 U/L (73-393) Phosphorus Level 3.4 MG/DL (2.5-4.9) Magnesium Level 2.2 MG/DL (1.8-2.4) Iron Level 55 ug/dL (50-175) Total Iron Binding Capacity 262 ug/dL (250-450) Percent Iron Saturation 21 % (15-50) Unsaturated Iron Binding 207 ug/dL (112-346) Lactate Dehydrogenase 120 U/L (81-234) C-Reactive Protein, Quantitative < 0.4 mg/dL (0.00-0.90) Amylase Level 42 U/L (25-115) Carcinoembryonic Antigen Pending Vitamin B12 Level 890 PG/ML (193-986) Folate 18.4 NG/ML (8.6-58.9) Risk Assessment & Plan Assessment: ASA 3 Plan: MAC Status Change Before Surgery: No Pre-Antibiotics Drug: none Blayne Doe MD Sep 21, 2019 15:07
--- NOTE | 2019-09-21 15:09 | Immediate Post-Op Evaluation ---
Immediate Post-Op Evalulation Immediate Post-Op Evalulation Procedure: EGD with Bx Date of Evaluation: Sep 21, 2019 Time of Evaluation: 15:08 IV Fluids: 200 Blood Products: none Estimated Blood Loss: none Urinary Output: none Blood Pressure Systolic: 112 Blood Pressure Diastolic: 56 Pulse Rate: 56 Respiratory Rate: 20 O2 Sat by Pulse Oximetry: 99 Temperature (Fahrenheit): 97.5 Pain Score (1-10): 1 Nausea: No Vomiting: No Complications none Patient Status: awake, patent, none Hydration Status: adequate Blayne Doe MD Sep 21, 2019 15:09
--- NOTE | 2019-09-21 15:10 | 48 Hour Post Anesthesia Eval ---
Post Anesthesia Evaluation Procedure: EGD with Bx Date of Evaluation: Sep 21, 2019 Time of Evaluation: 15:35 Blood Pressure Systolic: 108 0: 58 Pulse Rate: 65 Respiratory Rate: 18 Temperature (Fahrenheit): 97.6 O2 Sat by Pulse Oximetry: 98 Airway: patent Nausea: No Vomiting: No Pain Intensity: 1 Hydration Status: adequate Cardiopulmonary Status: stable Mental Status/LOC: patient returned to baseline Follow-up Care/Observations: n/a Post-Anesthesia Complications: none Follow-up care needed: N/A Blayne Doe MD Sep 21, 2019 15:10
--- NOTE | 2019-09-21 15:22 | Consultation ---
History of Present Illness General Date patient seen: Sep 21, 2019 Chief Complaint: Chest Pain Present Illness HPI 79 y/o M with hx of Aortic valve cyst s/p repair, prior ETOH abuse, Perforated gastric ulcer s/p repair ~40 yrs ago presented to ED on 09/19 with 3 weeks of intermittent chest and RUQ abdominal pain and 1 day of several episodes of emesis with small bright red blood and clots. Chest tightness is worse at night when laying down and after eating. Abd pain described as 10/10, sharp, stabbing and burning sensation. Endorses lot of stress recently. Denied fever, chills, nasal congestion, sore throat, diarrhea, dysuria, hematuria. Allergies: Coded Allergies: No Known Allergies (Unverified , 09/20/19) Medication History Scheduled Amlodipine Besylate (Norvasc), 10 MG ORAL DAILY, (Reported) Patient History Healthcare decision maker Resuscitation status Advanced Directive on File Patient History Narrative Pmhx: as above Shx: Sober for 37 years, prior alcohol use Fhx: non contributory Review of Systems All Other Systems: negative except mentioned in HPI Physical Exam Physical Exam Narrative General Appearance: no apparent distress, alert Lines, tubes and drains: peripheral HEENT: normocephalic, atraumatic Neck: non-tender, normal alignment Respiratory/Chest: chest wall non-tender, lungs clear, normal breath sounds Cardiovascular/Chest: normal peripheral pulses, normal rate, regular rhythm Abdomen: normal bowel sounds, non tender Extremities: normal range of motion Last 24 Hour Vital Signs Date Time Temp Pulse Resp B/P (MAP) Pulse Ox O2 Delivery O2 Flow Rate FiO2 09/21/19 12:00 97.0 57 18 121/65 (83) 100 09/21/19 09:43 63 137/57 09/21/19 09:00 Room Air 09/21/19 08:00 97.6 63 18 137/57 (83) 100 09/21/19 04:00 97.3 55 16 99/43 (61) 100 09/21/19 00:00 97.3 66 18 106/65 (79) 98 09/20/19 23:21 Room Air 09/20/19 22:35 Room Air 09/20/19 21:00 97.7 88 20 124/71 (88) 100 09/20/19 20:50 82 18 134/85 98 Room Air 09/20/19 17:14 97.9 73 18 110/76 100 09/20/19 15:20 72 16 09/20/19 15:20 97.8 72 16 106/72 99 Intake and Output 09/20/19 09/21/19 19:00 07:00 Intake Total 750 ml Output Total 200 ml Balance 550 ml Intake Oral 75 ml IV Total 675 ml Output Urine Total 200 ml # Voids 4 Laboratory Tests Test 09/20/19 15:45 09/20/19 16:10 09/21/19 07:15 White Blood Count 7.7 K/UL (4.8-10.8) 6.8 K/UL (4.8-10.8) Red Blood Count 2.89 M/UL (4.70-6.10) L 2.57 M/UL (4.70-6.10) L Hemoglobin 9.0 G/DL (14.2-18.0) L 7.9 G/DL (14.2-18.0) L Hematocrit 27.2 % (42.0-52.0) L 24.6 % (42.0-52.0) L Mean Corpuscular Volume 94 FL (80-99) 96 FL (80-99) Mean Corpuscular Hemoglobin 31.0 PG (27.0-31.0) 31.0 PG (27.0-31.0) Mean Corpuscular Hemoglobin Concent 33.0 G/DL (32.0-36.0) 32.3 G/DL (32.0-36.0) Red Cell Distribution Width 13.3 % (11.6-14.8) 13.8 % (11.6-14.8) Platelet Count 225 K/UL (150-450) 210 K/UL (150-450) Mean Platelet Volume 6.6 FL (6.5-10.1) 5.9 FL (6.5-10.1) L Neutrophils (%) (Auto) 78.4 % (45.0-75.0) H % (45.0-75.0) Lymphocytes (%) (Auto) 15.2 % (20.0-45.0) L % (20.0-45.0) Monocytes (%) (Auto) 5.9 % (1.0-10.0) % (1.0-10.0) Eosinophils (%) (Auto) 0.1 % (0.0-3.0) % (0.0-3.0) Basophils (%) (Auto) 0.4 % (0.0-2.0) % (0.0-2.0) Prothrombin Time 10.5 SEC (9.30-11.50) 10.7 SEC (9.30-11.50) Prothromb Time International Ratio 0.9 (0.9-1.1) 1.0 (0.9-1.1) Activated Partial Thromboplast Time 21 SEC (23-33) L 22 SEC (23-33) L Sodium Level 136 MMOL/L (136-145) 137 MMOL/L (136-145) Potassium Level 4.0 MMOL/L (3.5-5.1) 3.7 MMOL/L (3.5-5.1) Chloride Level 102 MMOL/L (98-107) 105 MMOL/L (98-107) Carbon Dioxide Level 26 MMOL/L (21-32) 27 MMOL/L (21-32) Anion Gap 8 mmol/L (5-15) 5 mmol/L (5-15) Blood Urea Nitrogen 33 mg/dL (7-18) H 23 mg/dL (7-18) H Creatinine 1.4 MG/DL (0.55-1.30) H 1.8 MG/DL (0.55-1.30) H Estimat Glomerular Filtration Rate 59.1 mL/min (>60) 44.2 mL/min (>60) Glucose Level 107 MG/DL (74-106) H 106 MG/DL (74-106) Uric Acid 4.8 MG/DL (2.6-7.2) Calcium Level 8.2 MG/DL (8.5-10.1) L 7.7 MG/DL (8.5-10.1) L Total Bilirubin 1.1 MG/DL (0.2-1.0) H 0.9 MG/DL (0.2-1.0) Direct Bilirubin 0.2 MG/DL (0.0-0.3) Aspartate Amino Transf (AST/SGOT) 18 U/L (15-37) 19 U/L (15-37) Alanine Aminotransferase (ALT/SGPT) 20 U/L (12-78) 20 U/L (12-78) Alkaline Phosphatase 49 U/L (46-116) 47 U/L (46-116) Total Creatine Kinase 89 U/L (26-308) Troponin I 0.015 ng/mL (0.000-0.056) Pro-B-Type Natriuretic Peptide 82 pg/mL (0-125) Total Protein 6.0 G/DL (6.4-8.2) L 5.5 G/DL (6.4-8.2) L Albumin 3.2 G/DL (3.4-5.0) L 2.9 G/DL (3.4-5.0) L Globulin 2.8 g/dL 2.6 g/dL Albumin/Globulin Ratio 1.1 (1.0-2.7) 1.1 (1.0-2.7) Lipase 75 U/L (73-393) 95 U/L (73-393) Urine Color Pale yellow Urine Appearance Slightly cloudy Urine pH 5 (4.5-8.0) Urine Specific [place] 1.015 (1.005-1.035) Urine Protein Negative (NEGATIVE) Urine Glucose (UA) Negative (NEGATIVE) Urine Ketones 2+ (NEGATIVE) H Urine Blood Negative (NEGATIVE) Urine Nitrite Negative (NEGATIVE) Urine Bilirubin Negative (NEGATIVE) Urine Urobilinogen Normal MG/DL (0.0-1.0) Urine Leukocyte Esterase Negative (NEGATIVE) Urine Eosinophils None seen (NONE SEEN) Urine Random Sodium 27 mmol/L (20-110) Urine Potassium Timed 55 mmol/L (12-62) Differential Total Cells Counted 100 Neutrophils % (Manual) 52 % (45-75) Lymphocytes % (Manual) 36 % (20-45) Monocytes % (Manual) 8 % (1-10) Eosinophils % (Manual) 3 % (0-3) Basophils % (Manual) 1 % (0-2) Band Neutrophils 0 % (0-8) Platelet Estimate Adequate Platelet Morphology Normal Hypochromasia 3+ Anisocytosis 1+ Erythrocyte Sedimentation Rate 22 MM/HR (0-20) H Reticulocyte Count 2.7 % (0.5-2.0) H Phosphorus Level 3.4 MG/DL (2.5-4.9) Magnesium Level 2.2 MG/DL (1.8-2.4) Iron Level 55 ug/dL (50-175) Total Iron Binding Capacity 262 ug/dL (250-450) Percent Iron Saturation 21 % (15-50) Unsaturated Iron Binding 207 ug/dL (112-346) Lactate Dehydrogenase 120 U/L (81-234) C-Reactive Protein, Quantitative < 0.4 mg/dL (0.00-0.90) Amylase Level 42 U/L (25-115) Carcinoembryonic Antigen Pending Vitamin B12 Level 890 PG/ML (193-986) Folate 18.4 NG/ML (8.6-58.9) Height (Feet): 6 Height (Inches): 1.00 Weight (Pounds): 183 Medications Current Medications Medications (Trade) Dose Ordered Sig/Iona Route PRN Reason Start Time Stop Time Status Last Admin Dose Admin Acetaminophen (Tylenol) 650 mg Q4H PRN ORAL fever 09/20/19 21:15 10/20/19 21:14 Amlodipine Besylate (Norvasc) 10 mg DAILY ORAL 09/21/19 09:00 10/21/19 08:59 09/21/19 09:43 Dextrose (Dextrose 50%) 25 ml Q30M PRN IV Hypoglycemia 09/20/19 21:15 12/19/19 21:14 Dextrose (Dextrose 50%) 50 ml Q30M PRN IV Hypoglycemia 09/20/19 21:15 12/19/19 21:14 Dextrose/Sodium Chloride 1,000 ml @ 75 mls/hr [id number] IV 09/20/19 22:00 10/20/19 21:59 09/21/19 10:50 Diphenhydramine HCl (Benadryl) 25 mg Q6H PRN ORAL Itching/Pruritis 09/20/19 21:15 10/20/19 21:14 Heparin Sodium (Porcine) (Heparin 5000 units/ml) 5,000 units EVERY 12 HOURS SUBQ 09/21/19 09:00 11/05/19 08:59 09/21/19 09:45 Morphine Sulfate (Morphine Sulfate) 2 mg Q4H PRN IVP For Pain 09/20/19 23:15 09/27/19 23:14 09/21/19 09:43 Nitroglycerin (Ntg) 0.4 mg Q5M X 3 DOSES PRN SL Prn Chest Pain 09/20/19 21:15 10/20/19 21:14 Ondansetron HCl (Zofran) 4 mg Q6H PRN IVP Nausea & Vomiting 09/20/19 21:15 10/20/19 21:14 Pantoprazole (Protonix) 40 mg BID IVP 09/21/19 18:00 10/21/19 08:59 Polyethylene Glycol (Miralax) 17 gm HSPRN PRN ORAL Constipation 09/20/19 21:15 10/20/19 21:14 Temazepam (Restoril) 15 mg HSPRN PRN ORAL Insomnia 09/20/19 21:15 09/27/19 21:14 09/20/19 22:47 Assessment/Plan Assessment/Plan: Abx: Zosyn x1 09/19 Assessment: Afebrile No leukocytosis -u/a neg -CXR: no acute disease PUD RUQ/chest pain Hematemesis 09/20 SP EGD: duodenal ulcer -CT abd/p: No radiopaque cholelithiasis. Possible minimal pericholecystic stranding versus artifact. Correlate clinically for cholecystitis. Mildly thickened bowel which may be underdistention versus enteritis/colitis. No bowel obstruction or diverticulitis. Abd US: No cholelithiasis or evidence of acute cholecystitis. Anemia DAY, worsening Aortic valve cyst s/p repair prior ETOH abuse Perforated gastric ulcer s/p repair ~40 yrs ago Plan -Continue to monitor off abx -f/u cx -Monitor CBC/CMP, temperatures -aspiration precautions -GI f/u Thank you for this consultation. Will continue to follow along with you. Discussed with Sera Baker M.D. Sep 21, 2019 15:22
[2019-09-21] MEDS: Pantoprazole Inj IVP SCH (18:00)
--- NOTE | 2019-09-21 19:56 | History & Physical ---
History and Physical History & Physicial Dictation Aristides Danielle MD Sep 21, 2019 19:56
--- NOTE | 2019-09-21 22:15 | Procedure Note ---
DATE OF PROCEDURE: 09/21/2019 SURGEON: Primo Unger MD. PROCEDURE: Upper endoscopy with biopsy. ANESTHESIA: Per Dr. Doe. INSTRUMENT: Olympus adult flexible upper endoscope. INDICATION: GI bleeding. REASON FOR PROCEDURE: The procedure, risks, benefits, and possible consequences, including hemorrhage, aspiration, perforation and infection, and alternative treatments, were explained to the patient/legal guardian by Dr. Primo Unger and the patient/legal guardian understood and accepted these risks. DESCRIPTION OF PROCEDURE: After informed consent was obtained and patient was adequately sedated, Olympus upper endoscope was advanced from mouth in to the second portion of the duodenum and retroflexion was performed in the stomach. The patient had a duodenal ulcer in the duodenal bulb with some deformity of the duodenum suggestive of chronic duodenal ulceration. No evidence of any adherent clot or visible vessel. At this time, the scope was pulled back into the stomach. Random biopsy from antrum and body was obtained to rule out H. pylori infection and the scope was retrieved. SUMMARY OF FINDINGS: 1. Duodenal ulcerations, most probably the source of bleeding without any adherent clot or visible vessel. 2. Status post gastric biopsy. RECOMMENDATIONS: 1. Protonix increased to twice a day. 2. Monitor hemoglobin and hematocrit. 3. Transfuse as needed to keep hemoglobin above 7. 4. Followup biopsy results and treat for H pylori if it is positive. 5. Start clear liquid diet and advance as tolerated. I want to thank, Dr. Danielle, for this kind referral. Primo Unger M.D. DR: Maggie JOB#: [id number] CC: Aristides Danielle M.D.; Fax#: [phone]
[2019-09-22] VITALS: BP 110/58
[2019-09-22] MEDS: D5 1/2NS 1,000 ML IV SCH ×4 (00:40→19:17)
[2019-09-22] MEDS: Morphine Sulfate 2mg/ml Inj(IV/IM USE ONLY) IVP PRN ×2 (02:55→14:06)
--- NOTE | 2019-09-22 03:45 | History and Physical Report ---
DATE OF ADMISSION: 09/20/2019 CHIEF COMPLAINT: Abdominal pain as well as bloody emesis. HISTORY OF PRESENT ILLNESS: This is an 79-year-old gentleman with past medical history significant for aortic valve, status post repair, prior history of alcohol abuse with history of perforated gastric ulcer status post repair about 40 years ago, history of hypertension who presented to the emergency department complaining about 3 weeks of intermittent chest pain associated with right upper quadrant abdominal pain, worsening over past 24 hours with multiple bloody emesis with small blood, bright red blood, and clots. Patient complained of chest tightness worsening last night with worsening when he lays down as well as after eating meals. Abdominal pain is described 10/10, sharp, stabbing, burning sensation. He has been having a lot of stress in his life. Shortly after initial evaluation in the emergency department, patient was noted to have hemoglobin of 9.[address] scan of the chest, abdomen, and pelvis, no radiographic cholelithiasis, possible minimal pericholecystic stranding versus artifact. Mild thickening of the bowels with undistended versus enteritis colitis. No bowel obstruction or diverticulitis was identified. Subsequently, patient was admitted to the hospital with abdominal pain and bloody emesis, most likely secondary to acute upper GI bleed and severe anemia. PAST MEDICAL HISTORY/PAST SURGICAL HISTORY: As above history of aortic valve, status post repair; prior history of alcohol abuse, presently sober for 37 years; perforated gastric ulcer, status post repair over 40 years; hypertension. MEDICATIONS: At home significant for amlodipine 10 mg daily but has not been taken it for while. . ALLERGIES: No known drug allergies. SOCIAL HISTORY: Denies any smoking, alcohol, or drugs at this time. He is sober for 37 years with prior history of alcohol abuse. FAMILY HISTORY: Noncontributory. REVIEW OF SYSTEMS: Mostly as above. Denies any dysuria, frequency, or hematuria. Complained about bloody emesis. Denies any hemoptysis. Positive hematochezia. PHYSICAL EXAMINATION: VITAL SIGNS: On admission, temperature 97.8, pulse of 72, respirations 16, blood pressure 106/75. GENERAL: Patient is awake and responsive, in no acute distress. HEAD AND NECK: Pupils are equal and reactive to light. Extraocular movements intact. Neck was supple. No JVD. LUNGS: Clear. No wheezing or rales. HEART: S1, S2. Regular rhythm. No gallops. ABDOMEN: Soft. Tender in the epigastric area. No rebound tenderness. No fluid shift. EXTREMITIES: No cyanosis, clubbing, or edema NEUROLOGIC: Cranial nerves II through XII grossly normal. Motor is 5/5 all extremities. Gait was not assessed due to patient's status. RECTAL/GENITOURINARY: Refused and deferred. PSYCHIATRIC: Mood and affect is intact. LABORATORY DATA: On admission WBC of 7.7, hemoglobin 9.0, hematocrit of 27, platelets 225. Sodium 136, potassium 4.0, chloride 102, bicarb 26, BUN 33, creatinine 1.5, glucose is 107, GFR is 59.1. Total bilirubin of 1.1, direct bilirubin of 0.2. Troponin 0.15. Total protein is 6.0. BNP of 82. PT of 10, INR 0.9, PTT of 21. Urinalysis, +2 ketone, otherwise negative. No urine eosinophils. Patient's CAT scan of chest, abdomen, and pelvis was noted. Chest x-ray, no acute cardiopulmonary disease. Abdominal ultrasound was done. No cholelithiasis or evidence of acute cholecystitis. ASSESSMENT: 1. Abdominal pain associated with bloody emesis, most likely secondary to upper GI bleed. 2. History of perforated gastric ulcer. 3. Hypertension. 4. Acute anemia due to the acute blood loss. 5. Acute kidney injury. 6. Aortic valve, status post repair. 7. Prior history of alcohol abuse. PLAN: Admit patient to medical floor. We will follow up with Dr. Unger consultation from Gastroenterology, Dr. Combs from Infectious Disease, and Dr. Cueva, Pulmonary/Critical Care. Monitor blood level closely. Code status is Full code. DVT prophylaxis is SCD. We will continue Protonix IV b.i.d. and Zofran p.r.n. and monitor blood pressure closely. Aristides Danielle M.D. DR: NELLY JOB#: [id number] CC: [email or web address]
[2019-09-22 04:00] VITALS: BP 105/60
[2019-09-22 07:26] LABS: BASOPHILS % (AUTO) 1.7 % (0.0-2.0); EOSINOPHILS % (AUTO) 3.5 % (0.0-3.0); HEMATOCRIT 26.7 % (42.0-52.0); HEMOGLOBIN 8.9 G/DL (14.2-18.0); LYMPHOCYTES % (AUTO) 30.4 % (20.0-45.0); MEAN CORPUSCULAR VOLUME 95 FL (80-99); NEUTROPHILS % (AUTO) 58.4 % (45.0-75.0); PLATELET COUNT 199 K/UL (150-450); RED BLOOD COUNT 2.82 M/UL (4.70-6.10); RED CELL DISTRIBUTION WIDTH 13.2 % (11.6-14.8); WHITE BLOOD COUNT 5.6 K/UL (4.8-10.8)
--- NOTE | 2019-09-22 07:27 | Pulmonology Progress Note ---
Subjective Allergies: Coded Allergies: No Known Allergies (Unverified , 09/20/19) Subjective s/p EGD 09/20 tolerates CL diet occasional nausea, no vomiting occasional abd pain, controlled with analgesics BP elevated Objective Last 24 Hour Vital Signs Date Time Temp Pulse Resp B/P (MAP) Pulse Ox O2 Delivery O2 Flow Rate FiO2 09/22/19 04:00 98.3 68 18 105/60 (75) 98 09/22/19 00:00 98.0 62 18 110/58 (75) 99 09/21/19 21:00 Room Air 09/21/19 20:00 97.9 64 18 101/59 (73) 98 09/21/19 15:35 97.4 58 22 105/68 99 Room Air 09/21/19 15:20 54 24 109/57 100 Nasal Cannula 3 09/21/19 15:10 55 22 106/58 100 Nasal Cannula 3 09/21/19 15:10 65 18 98 09/21/19 15:09 56 20 99 09/21/19 15:05 55 24 112/50 100 Nasal Cannula 3 09/21/19 15:02 97.1 54 24 115/56 100 Nasal Cannula 3 09/21/19 12:00 97.0 57 18 121/65 (83) 100 09/21/19 09:43 63 137/57 09/21/19 09:00 Room Air 09/21/19 08:00 97.6 63 18 137/57 (83) 100 Intake and Output 09/21/19 09/22/19 19:00 07:00 Intake Total 760 ml 480 ml Output Total 700 ml 1350 ml Balance 60 ml -870 ml Intake Oral 360 ml 480 ml IV Total 400 ml Output Urine Total 700 ml 1350 ml # Voids 2 General Appearance: WD/WN - AA male , no acute distress HEENT: normocephalic, anicteric, mucous membranes moist Respiratory: lungs clear, no respiratory distress, no accessory muscle use Cardiovascular: normal peripheral pulses, normal rate Abdomen: normal bowel sounds, soft, non tender, non distended Extremities: no edema, pedal pulses normal Neurologic: no motor/sensory deficits, alert, oriented x 3, responsive Musculoskeletal: normal muscle bulk Laboratory Tests 09/22/19 05:15: White Blood Count [Pending], Red Blood Count [Pending], Hemoglobin [Pending], Hematocrit [Pending], Mean Corpuscular Volume [Pending], Mean Corpuscular Hemoglobin [Pending], Mean Corpuscular Hemoglobin Concent [Pending], Red Cell Distribution Width [Pending], Platelet Count [Pending], Mean Platelet Volume [ Pending], Neutrophils (%) (Auto) [Pending], Lymphocytes (%) (Auto) [Pending], Monocytes (%) (Auto) [Pending], Eosinophils (%) (Auto) [Pending], Basophils (%) (Auto) [Pending], Sodium Level [Pending], Potassium Level [Pending], Chloride Level [Pending], Carbon Dioxide Level [Pending], Blood Urea Nitrogen [Pending], Creatinine [Pending], Estimat Glomerular Filtration Rate [Pending], Glucose Level [Pending], Calcium Level [Pending], Phosphorus Level [Pending], Magnesium Level [Pending], Total Bilirubin [Pending], Aspartate Amino Transf (AST/SGOT) [ Pending], Alanine Aminotransferase (ALT/SGPT) [Pending], Alkaline Phosphatase [ Pending], Lactate Dehydrogenase [Pending], Total Protein [Pending], Albumin [ Pending], Globulin [Pending] Current Medications Medications (Trade) Dose Ordered Sig/Iona Route PRN Reason Start Time Stop Time Status Last Admin Dose Admin Acetaminophen (Tylenol) 650 mg Q4H PRN ORAL fever 09/20/19 21:15 10/20/19 21:14 Amlodipine Besylate (Norvasc) 5 mg DAILY ORAL 09/22/19 09:00 10/21/19 08:59 Dextrose (Dextrose 50%) 25 ml Q30M PRN IV Hypoglycemia 09/20/19 21:15 12/19/19 21:14 Dextrose (Dextrose 50%) 50 ml Q30M PRN IV Hypoglycemia 09/20/19 21:15 12/19/19 21:14 Dextrose/Sodium Chloride 1,000 ml @ 75 mls/hr [id number] IV 09/20/19 22:00 10/20/19 21:59 09/22/19 05:20 Diphenhydramine HCl (Benadryl) 25 mg Q6H PRN ORAL Itching/Pruritis 09/20/19 21:15 10/20/19 21:14 Morphine Sulfate (Morphine Sulfate) 2 mg Q4H PRN IVP For Pain 09/20/19 23:15 09/27/19 23:14 09/22/19 02:55 Nitroglycerin (Ntg) 0.4 mg Q5M X 3 DOSES PRN SL Prn Chest Pain 09/20/19 21:15 10/20/19 21:14 Ondansetron HCl (Zofran) 4 mg Q6H PRN IVP Nausea & Vomiting 09/20/19 21:15 10/20/19 21:14 Pantoprazole (Protonix) 40 mg BID IVP 09/21/19 18:00 10/21/19 08:59 09/21/19 18:00 Polyethylene Glycol (Miralax) 17 gm HSPRN PRN ORAL Constipation 09/20/19 21:15 10/20/19 21:14 Temazepam (Restoril) 15 mg HSPRN PRN ORAL Insomnia 09/20/19 21:15 09/27/19 21:14 09/21/19 20:56 Assessment/Plan Assessment/Plan ASSESSMENT Upper GI bleeding s/p EGD Duodenal ulcer Anemia Bullous emphysema Acute kidney injury Hypertension PLAN OF CARE MS floor O2 HHN PRN s/p EGD 09/20-> duodenal ulceration PPI BID CL diet and advance as tolerated -> advance to soft at lunch f/up with gastric biopsy monitor H&H with goal to keep Hgb > 7 CEA WNL abd US and CT A/P noted pain management prn IVF monitor renal parameters lytes ,correct electrolytes prn, avoid nephrotoxics DAY possibly due to GI bleeding BP management with CCB and add Clonidine prn supportive care d/w GI if tolerates diet and stable HH, can be dc tomorrow case discussed and evaluated by supervising physician Nu Moseley NP Sep 22, 2019 07:27
[2019-09-22 08:00] VITALS: BP 168/97
[2019-09-22 08:11] LABS: ALANINE AMINOTRANSFERASE 14 U/L (12-78); ALBUMIN 2.9 G/DL (3.4-5.0); ALBUMIN/GLOBULIN RATIO 1.1 (1.0-2.7); ALKALINE PHOSPHATASE 47 U/L (46-116); ANION GAP 7 mmol/L (5-15); ASPARTATE AMINO TRANSFERASE 18 U/L (15-37); BLOOD UREA NITROGEN 12 mg/dL (7-18); CALCIUM 7.7 MG/DL (8.5-10.1); CARBON DIOXIDE 27 MMOL/L (21-32); CHLORIDE 108 MMOL/L (98-107); CREATININE 1.5 MG/DL (0.55-1.30); LACTATE DEHYDROGENASE 129 U/L (81-234); PHOSPHORUS 3.4 MG/DL (2.5-4.9); POTASSIUM 4.2 MMOL/L (3.5-5.1); SODIUM 142 MMOL/L (136-145)
[2019-09-22] MEDS: Pantoprazole Inj IVP SCH ×2 (09:22→17:10)
[2019-09-22 12:00] VITALS: BP 106/51
--- NOTE | 2019-09-22 13:17 | Internal Med Progress Note ---
Subjective Date of Service: Sep 22, 2019 Physician Name RamyaEmery Attending Physician Aristides Danielle MD Current Medications Medications (Trade) Dose Ordered Sig/Iona Route PRN Reason Start Time Stop Time Status Last Admin Dose Admin Acetaminophen (Tylenol) 650 mg Q4H PRN ORAL fever 09/20/19 21:15 10/20/19 21:14 Amlodipine Besylate (Norvasc) 5 mg DAILY ORAL 09/22/19 09:15 10/22/19 09:14 09/22/19 09:22 Clonidine HCl (Catapres Tab) 0.1 mg Q6H PRN ORAL For High Blood Pressure 09/22/19 09:15 12/21/19 09:14 Dextrose (Dextrose 50%) 25 ml Q30M PRN IV Hypoglycemia 09/20/19 21:15 12/19/19 21:14 Dextrose (Dextrose 50%) 50 ml Q30M PRN IV Hypoglycemia 09/20/19 21:15 12/19/19 21:14 Dextrose/Sodium Chloride 1,000 ml @ 75 mls/hr [id number] IV 09/20/19 22:00 10/20/19 21:59 09/22/19 05:20 Diphenhydramine HCl (Benadryl) 25 mg Q6H PRN ORAL Itching/Pruritis 09/20/19 21:15 10/20/19 21:14 Morphine Sulfate (Morphine Sulfate) 2 mg Q4H PRN IVP For Pain 09/20/19 23:15 09/27/19 23:14 09/22/19 02:55 Nitroglycerin (Ntg) 0.4 mg Q5M X 3 DOSES PRN SL Prn Chest Pain 09/20/19 21:15 10/20/19 21:14 Ondansetron HCl (Zofran) 4 mg Q6H PRN IVP Nausea & Vomiting 09/20/19 21:15 10/20/19 21:14 Pantoprazole (Protonix) 40 mg BID IVP 09/21/19 18:00 10/21/19 08:59 09/22/19 09:22 Polyethylene Glycol (Miralax) 17 gm HSPRN PRN ORAL Constipation 09/20/19 21:15 10/20/19 21:14 Temazepam (Restoril) 15 mg HSPRN PRN ORAL Insomnia 09/20/19 21:15 09/27/19 21:14 09/21/19 20:56 Allergies: Coded Allergies: No Known Allergies (Unverified , 09/20/19) ROS Limited/Unobtainable: No Constitutional: Reports: no symptoms HEENT: Reports: no symptoms Cardiovascular: Reports: chest pain Respiratory: Reports: no symptoms Gastrointestinal/Abdominal: Reports: abdominal pain, vomiting Genitourinary: Reports: no symptoms Neurologic/Psychiatric: Reports: no symptoms Subjective 79 YO M admitted with hematemesis. Now duodenal ulcer. Cover for Int Med-DR Danielle. S/P endoscopy 09/21/19 Objective Last Vital Signs Date Time Temp Pulse Resp B/P (MAP) Pulse Ox O2 Delivery O2 Flow Rate FiO2 09/22/19 12:00 98.1 71 19 106/51 (69) 100 09/22/19 09:00 Room Air 09/21/19 15:20 3 Laboratory Tests Test 09/22/19 05:15 White Blood Count 5.6 K/UL (4.8-10.8) Red Blood Count 2.82 M/UL (4.70-6.10) L Hemoglobin 8.9 G/DL (14.2-18.0) L Hematocrit 26.7 % (42.0-52.0) L Mean Corpuscular Volume 95 FL (80-99) Mean Corpuscular Hemoglobin 31.4 PG (27.0-31.0) H Mean Corpuscular Hemoglobin Concent 33.2 G/DL (32.0-36.0) Red Cell Distribution Width 13.2 % (11.6-14.8) Platelet Count 199 K/UL (150-450) Mean Platelet Volume 5.7 FL (6.5-10.1) L Neutrophils (%) (Auto) 58.4 % (45.0-75.0) Lymphocytes (%) (Auto) 30.4 % (20.0-45.0) Monocytes (%) (Auto) 6.0 % (1.0-10.0) Eosinophils (%) (Auto) 3.5 % (0.0-3.0) H Basophils (%) (Auto) 1.7 % (0.0-2.0) Sodium Level 142 MMOL/L (136-145) Potassium Level 4.2 MMOL/L (3.5-5.1) Chloride Level 108 MMOL/L (98-107) H Carbon Dioxide Level 27 MMOL/L (21-32) Anion Gap 7 mmol/L (5-15) Blood Urea Nitrogen 12 mg/dL (7-18) Creatinine 1.5 MG/DL (0.55-1.30) H Estimat Glomerular Filtration Rate 54.5 mL/min (>60) Glucose Level 99 MG/DL (74-106) Calcium Level 7.7 MG/DL (8.5-10.1) L Phosphorus Level 3.4 MG/DL (2.5-4.9) Magnesium Level 2.2 MG/DL (1.8-2.4) Total Bilirubin 1.0 MG/DL (0.2-1.0) Aspartate Amino Transf (AST/SGOT) 18 U/L (15-37) Alanine Aminotransferase (ALT/SGPT) 14 U/L (12-78) Alkaline Phosphatase 47 U/L (46-116) Lactate Dehydrogenase 129 U/L (81-234) Total Protein 5.5 G/DL (6.4-8.2) L Albumin 2.9 G/DL (3.4-5.0) L Globulin 2.6 g/dL Albumin/Globulin Ratio 1.1 (1.0-2.7) Intake and Output 09/21/19 09/22/19 19:00 07:00 Intake Total 760 ml 555 ml Output Total 700 ml 1350 ml Balance 60 ml -795 ml Intake Oral 360 ml 480 ml IV Total 400 ml 75 ml Output Urine Total 700 ml 1350 ml # Voids 2 Objective PHYSICAL EXAMINATION: GENERAL: Patient is awake and responsive, in no acute distress. HEAD AND NECK: Pupils are equal and reactive to light. Extraocular movements intact. Neck was supple. No JVD. LUNGS: Clear. No wheezing or rales. HEART: S1, S2. Regular rhythm. No gallops. ABDOMEN: Soft. Tender in the epigastric area. No rebound tenderness. No fluid shift. EXTREMITIES: No cyanosis, clubbing, or edema NEUROLOGIC: Cranial nerves II through XII grossly normal. Motor is 5/5 all extremities. Gait was not assessed due to patient's status. RECTAL/GENITOURINARY: Refused and deferred. PSYCHIATRIC: Mood and affect is intact. Assessment/Plan Assessment/Plan ASSESSMENT: 1. RUQ Abdominal pain 2. upper GI bleed. 2. History of perforated gastric ulcer. 3. Hypertension. 4. Acute anemia due to the acute blood loss. 5. Acute kidney injury. 6. Aortic valve, status post repair. 7. Prior history of alcohol abuse. 8. Bleeding duodenal ulcer 9. Severe anemia PLAN: 1. Admit patient to medical floor. 2. Dr. Unger=Gastroenterology; S/P endoscopy 09/21/[address] Combs = Infectious Disease, 4. Dr. Cueva=Pulmonary/Critical Care. 5. Code status is Full code. 6. DVT prophylaxis is SCD. 7. Continue Protonix IV b.i.d. and Zofran p.r.n. 8. S/P transfusion 1 unit PRBC Emery Bui MD Sep 22, 2019 13:17
--- NOTE | 2019-09-22 14:14 | Infectious Diseases Prog Note ---
Assessment/Plan Assessment/Plan Assessment: Afebrile No leukocytosis -u/a neg -CXR: no acute disease PUD RUQ/chest pain Hematemesis 09/20 SP EGD: duodenal ulcer -CT abd/p: No radiopaque cholelithiasis. Possible minimal pericholecystic stranding versus artifact. Correlate clinically for cholecystitis. Mildly thickened bowel which may be underdistention versus enteritis/colitis. No bowel obstruction or diverticulitis. Abd US: No cholelithiasis or evidence of acute cholecystitis. Anemia DAY, improving Aortic valve cyst s/p repair prior ETOH abuse Perforated gastric ulcer s/p repair ~40 yrs ago Plan -Continue to monitor off abx -09/19 SP Zosyn x1 -f/u cx -Monitor CBC/CMP, temperatures -aspiration precautions -GI f/u Thank you for this consultation. Will continue to follow along with you. Discussed with RN. Subjective Allergies: Coded Allergies: No Known Allergies (Unverified , 09/20/19) Subjective afebrile no leukocytosis Cr improving Objective Vital Signs Last 24 Hour Vital Signs Date Time Temp Pulse Resp B/P (MAP) Pulse Ox O2 Delivery O2 Flow Rate FiO2 09/22/19 12:00 98.1 71 19 106/51 (69) 100 09/22/19 09:22 94 168/97 09/22/19 09:00 Room Air 09/22/19 08:00 97.3 94 19 168/97 (120) 98 09/22/19 04:00 98.3 68 18 105/60 (75) 98 09/22/19 00:00 98.0 62 18 110/58 (75) 99 09/21/19 21:00 Room Air 09/21/19 20:00 97.9 64 18 101/59 (73) 98 09/21/19 15:35 97.4 58 22 105/68 99 Room Air 09/21/19 15:20 54 24 109/57 100 Nasal Cannula 3 09/21/19 15:10 55 22 106/58 100 Nasal Cannula 3 09/21/19 15:10 65 18 98 09/21/19 15:09 56 20 99 09/21/19 15:05 55 24 112/50 100 Nasal Cannula 3 09/21/19 15:02 97.1 54 24 115/56 100 Nasal Cannula 3 Height (Feet): 6 Height (Inches): 1.00 Weight (Pounds): 183 Objective General Appearance: no apparent distress, alert Lines, tubes and drains: peripheral HEENT: normocephalic, atraumatic Neck: non-tender, normal alignment Respiratory/Chest: chest wall non-tender, lungs clear, normal breath sounds Cardiovascular/Chest: normal peripheral pulses, normal rate, regular rhythm Abdomen: normal bowel sounds, non tender Extremities: normal range of motion Laboratory Tests Test 09/22/19 05:15 White Blood Count 5.6 K/UL (4.8-10.8) Red Blood Count 2.82 M/UL (4.70-6.10) L Hemoglobin 8.9 G/DL (14.2-18.0) L Hematocrit 26.7 % (42.0-52.0) L Mean Corpuscular Volume 95 FL (80-99) Mean Corpuscular Hemoglobin 31.4 PG (27.0-31.0) H Mean Corpuscular Hemoglobin Concent 33.2 G/DL (32.0-36.0) Red Cell Distribution Width 13.2 % (11.6-14.8) Platelet Count 199 K/UL (150-450) Mean Platelet Volume 5.7 FL (6.5-10.1) L Neutrophils (%) (Auto) 58.4 % (45.0-75.0) Lymphocytes (%) (Auto) 30.4 % (20.0-45.0) Monocytes (%) (Auto) 6.0 % (1.0-10.0) Eosinophils (%) (Auto) 3.5 % (0.0-3.0) H Basophils (%) (Auto) 1.7 % (0.0-2.0) Sodium Level 142 MMOL/L (136-145) Potassium Level 4.2 MMOL/L (3.5-5.1) Chloride Level 108 MMOL/L (98-107) H Carbon Dioxide Level 27 MMOL/L (21-32) Anion Gap 7 mmol/L (5-15) Blood Urea Nitrogen 12 mg/dL (7-18) Creatinine 1.5 MG/DL (0.55-1.30) H Estimat Glomerular Filtration Rate 54.5 mL/min (>60) Glucose Level 99 MG/DL (74-106) Calcium Level 7.7 MG/DL (8.5-10.1) L Phosphorus Level 3.4 MG/DL (2.5-4.9) Magnesium Level 2.2 MG/DL (1.8-2.4) Total Bilirubin 1.0 MG/DL (0.2-1.0) Aspartate Amino Transf (AST/SGOT) 18 U/L (15-37) Alanine Aminotransferase (ALT/SGPT) 14 U/L (12-78) Alkaline Phosphatase 47 U/L (46-116) Lactate Dehydrogenase 129 U/L (81-234) Total Protein 5.5 G/DL (6.4-8.2) L Albumin 2.9 G/DL (3.4-5.0) L Globulin 2.6 g/dL Albumin/Globulin Ratio 1.1 (1.0-2.7) Current Medications Medications (Trade) Dose Ordered Sig/Iona Route PRN Reason Start Time Stop Time Status Last Admin Dose Admin Acetaminophen (Tylenol) 650 mg Q4H PRN ORAL fever 09/20/19 21:15 10/20/19 21:14 Amlodipine Besylate (Norvasc) 5 mg DAILY ORAL 09/22/19 09:15 10/22/19 09:14 09/22/19 09:22 Clonidine HCl (Catapres Tab) 0.1 mg Q6H PRN ORAL For High Blood Pressure 09/22/19 09:15 12/21/19 09:14 Dextrose (Dextrose 50%) 25 ml Q30M PRN IV Hypoglycemia 09/20/19 21:15 12/19/19 21:14 Dextrose (Dextrose 50%) 50 ml Q30M PRN IV Hypoglycemia 09/20/19 21:15 12/19/19 21:14 Dextrose/Sodium Chloride 1,000 ml @ 75 mls/hr [id number] IV 09/20/19 22:00 10/20/19 21:59 09/22/19 05:20 Diphenhydramine HCl (Benadryl) 25 mg Q6H PRN ORAL Itching/Pruritis 09/20/19 21:15 10/20/19 21:14 Morphine Sulfate (Morphine Sulfate) 2 mg Q4H PRN IVP For Pain 09/20/19 23:15 09/27/19 23:14 09/22/19 14:06 Nitroglycerin (Ntg) 0.4 mg Q5M X 3 DOSES PRN SL Prn Chest Pain 09/20/19 21:15 10/20/19 21:14 Ondansetron HCl (Zofran) 4 mg Q6H PRN IVP Nausea & Vomiting 09/20/19 21:15 10/20/19 21:14 Pantoprazole (Protonix) 40 mg BID IVP 09/21/19 18:00 10/21/19 08:59 09/22/19 09:22 Polyethylene Glycol (Miralax) 17 gm HSPRN PRN ORAL Constipation 09/20/19 21:15 10/20/19 21:14 Temazepam (Restoril) 15 mg HSPRN PRN ORAL Insomnia 09/20/19 21:15 09/27/19 21:14 09/21/19 20:56 Sera Combs M.D. Sep 22, 2019 14:14
[2019-09-22 16:00] VITALS: BP 110/51
[2019-09-22 20:00] VITALS: BP 119/63
--- NOTE | 2019-09-22 20:49 | General Progress Note ---
Assessment/Plan Assessment/Plan: Assessment/Plan - Abd pain - UGIB - Duodenal ulcer - anemia - HTN Recommendations - PPI - advance diet - monitor H&H - check and Rx H Pylori if (+) Subjective Allergies: Coded Allergies: No Known Allergies (Unverified , 09/20/19) Subjective above noted feels better s/p EGD yesterday --> DU tolerating liquids Objective Last 24 Hour Vital Signs Date Time Temp Pulse Resp B/P (MAP) Pulse Ox O2 Delivery O2 Flow Rate FiO2 09/22/19 20:00 97.7 83 18 119/63 (81) 98 09/22/19 16:00 97.7 74 17 110/51 (70) 99 09/22/19 14:36 98.1 09/22/19 12:00 98.1 71 19 106/51 (69) 100 09/22/19 09:22 94 168/97 09/22/19 09:00 Room Air 09/22/19 08:00 97.3 94 19 168/97 (120) 98 09/22/19 04:00 98.3 68 18 105/60 (75) 98 09/22/19 00:00 98.0 62 18 110/58 (75) 99 09/21/19 21:00 Room Air Intake and Output 09/21/19 09/22/19 19:00 07:00 Intake Total 760 ml 555 ml Output Total 700 ml 1350 ml Balance 60 ml -795 ml Intake Oral 360 ml 480 ml IV Total 400 ml 75 ml Output Urine Total 700 ml 1350 ml # Voids 2 Laboratory Tests 09/22/19 05:15: White Blood Count 5.6, Red Blood Count 2.82L, Hemoglobin 8.9L, Hematocrit 26.7L , Mean Corpuscular Volume 95, Mean Corpuscular Hemoglobin 31.4H, Mean Corpuscular Hemoglobin Concent 33.2, Red Cell Distribution Width 13.2, Platelet Count 199, Mean Platelet Volume 5.7L, Neutrophils (%) (Auto) 58.4, Lymphocytes ( %) (Auto) 30.4, Monocytes (%) (Auto) 6.0, Eosinophils (%) (Auto) 3.5H, Basophils (%) (Auto) 1.7, Sodium Level 142, Potassium Level 4.2, Chloride Level 108H, Carbon Dioxide Level 27, Anion Gap 7, Blood Urea Nitrogen 12, Creatinine 1.5H, Estimat Glomerular Filtration Rate 54.5, Glucose Level 99, Calcium Level 7.7L, Phosphorus Level 3.4, Magnesium Level 2.2, Total Bilirubin 1.0, Aspartate Amino Transf (AST/SGOT) 18, Alanine Aminotransferase (ALT/SGPT) 14, Alkaline Phosphatase 47, Lactate Dehydrogenase 129, Total Protein 5.5L, Albumin 2.9L, Globulin 2.6, Albumin/Globulin Ratio 1.1 Height (Feet): 6 Height (Inches): 1.00 Weight (Pounds): 183 Objective WDWN NCAT supple CTA RRR Abd soft ND NT no edema Elsy Guerrero MD Sep 22, 2019 20:49
[2019-09-23 04:00] VITALS: BP 109/48
[2019-09-23] MEDS: D5 1/2NS 1,000 ML IV SCH (06:00)
[2019-09-23 06:23] LABS: BASOPHILS % (AUTO) 1.1 % (0.0-2.0); EOSINOPHILS % (AUTO) 3.5 % (0.0-3.0); HEMATOCRIT 24.2 % (42.0-52.0); HEMOGLOBIN 8.1 G/DL (14.2-18.0); LYMPHOCYTES % (AUTO) 24.7 % (20.0-45.0); MEAN CORPUSCULAR VOLUME 94 FL (80-99); MONOCYTES % (AUTO) 8.9 % (1.0-10.0); NEUTROPHILS % (AUTO) 61.9 % (45.0-75.0); PLATELET COUNT 215 K/UL (150-450); RED BLOOD COUNT 2.57 M/UL (4.70-6.10); RED CELL DISTRIBUTION WIDTH 13.2 % (11.6-14.8); WHITE BLOOD COUNT 5.6 K/UL (4.8-10.8)
[2019-09-23 07:03] LABS: ANION GAP 6 mmol/L (5-15); BLOOD UREA NITROGEN 11 mg/dL (7-18); CALCIUM 7.5 MG/DL (8.5-10.1); CARBON DIOXIDE 26 MMOL/L (21-32); CHLORIDE 108 MMOL/L (98-107); CREATININE 1.5 MG/DL (0.55-1.30); POTASSIUM 3.9 MMOL/L (3.5-5.1); SODIUM 140 MMOL/L (136-145)
[2019-09-23 08:00] VITALS: BP 139/73
[2019-09-23] MEDS: Pantoprazole Inj IVP SCH (08:22)
--- NOTE | 2019-09-23 08:48 | Pulmonology Progress Note ---
Subjective ROS Limited/Unobtainable: No Allergies: Coded Allergies: No Known Allergies (Unverified , 09/20/19) Subjective s/p EGD 09/20 tolerates soft diet occasional nausea, no vomiting occasional abd pain, controlled with analgesics BP stable no BM since Tuesday Objective Last 24 Hour Vital Signs Date Time Temp Pulse Resp B/P (MAP) Pulse Ox O2 Delivery O2 Flow Rate FiO2 09/23/19 08:22 71 109/48 09/23/19 08:00 97.5 76 20 139/73 (95) 100 09/23/19 04:00 97.5 71 20 109/48 (68) 97 09/22/19 21:00 Room Air 09/22/19 20:00 97.7 83 18 119/63 (81) 98 09/22/19 16:00 97.7 74 17 110/51 (70) 99 09/22/19 14:36 98.1 09/22/19 12:00 98.1 71 19 106/51 (69) 100 09/22/19 09:22 94 168/97 09/22/19 09:00 Room Air Intake and Output 09/22/19 09/23/19 18:59 06:59 Intake Total 2100 ml 1185 ml Output Total 400 ml Balance 2100 ml 785 ml Intake Oral 360 ml IV Total 900 ml 825 ml Other 1200 ml Output Urine Total 400 ml General Appearance: WD/WN, no acute distress HEENT: normocephalic, anicteric, mucous membranes moist Respiratory: lungs clear, no respiratory distress, no accessory muscle use Cardiovascular: normal peripheral pulses, normal rate Abdomen: normal bowel sounds, soft, non tender, non distended Extremities: no edema, pedal pulses normal Neurologic: no motor/sensory deficits, alert, oriented x 3, responsive Musculoskeletal: normal muscle bulk Laboratory Tests 09/23/19 06:00: White Blood Count 5.6, Red Blood Count 2.57L, Hemoglobin 8.1L, Hematocrit 24.2L , Mean Corpuscular Volume 94, Mean Corpuscular Hemoglobin 31.5H, Mean Corpuscular Hemoglobin Concent 33.5, Red Cell Distribution Width 13.2, Platelet Count 215, Mean Platelet Volume 6.2L, Neutrophils (%) (Auto) 61.9, Lymphocytes ( %) (Auto) 24.7, Monocytes (%) (Auto) 8.9, Eosinophils (%) (Auto) 3.5H, Basophils (%) (Auto) 1.1, Sodium Level 140, Potassium Level 3.9, Chloride Level 108H, Carbon Dioxide Level 26, Anion Gap 6, Blood Urea Nitrogen 11, Creatinine 1.5H, Estimat Glomerular Filtration Rate 54.5, Glucose Level 106, Calcium Level 7.5L Current Medications Medications (Trade) Dose Ordered Sig/Iona Route PRN Reason Start Time Stop Time Status Last Admin Dose Admin Acetaminophen (Tylenol) 650 mg Q4H PRN ORAL fever 09/20/19 21:15 10/20/19 21:14 Amlodipine Besylate (Norvasc) 5 mg DAILY ORAL 09/22/19 09:15 10/22/19 09:14 09/23/19 08:22 Clonidine HCl (Catapres Tab) 0.1 mg Q6H PRN ORAL For High Blood Pressure 09/22/19 09:15 12/21/19 09:14 Dextrose (Dextrose 50%) 25 ml Q30M PRN IV Hypoglycemia 09/20/19 21:15 12/19/19 21:14 Dextrose (Dextrose 50%) 50 ml Q30M PRN IV Hypoglycemia 09/20/19 21:15 12/19/19 21:14 Dextrose/Sodium Chloride 1,000 ml @ 75 mls/hr [id number] IV 09/20/19 22:00 10/20/19 21:59 09/23/19 06:00 Diphenhydramine HCl (Benadryl) 25 mg Q6H PRN ORAL Itching/Pruritis 09/20/19 21:15 10/20/19 21:14 Morphine Sulfate (Morphine Sulfate) 2 mg Q4H PRN IVP For Pain 09/20/19 23:15 09/27/19 23:14 09/22/19 14:06 Nitroglycerin (Ntg) 0.4 mg Q5M X 3 DOSES PRN SL Prn Chest Pain 09/20/19 21:15 10/20/19 21:14 Ondansetron HCl (Zofran) 4 mg Q6H PRN IVP Nausea & Vomiting 09/20/19 21:15 10/20/19 21:14 Pantoprazole (Protonix) 40 mg BID IVP 09/21/19 18:00 10/21/19 08:59 09/23/19 08:22 Polyethylene Glycol (Miralax) 17 gm HSPRN PRN ORAL Constipation 09/20/19 21:15 10/20/19 21:14 Temazepam (Restoril) 15 mg HSPRN PRN ORAL Insomnia 09/20/19 21:15 09/27/19 21:14 09/22/19 21:05 Assessment/Plan Assessment/Plan ASSESSMENT Upper GI bleeding s/p EGD Duodenal ulcer Anemia Bullous emphysema Acute kidney injury Hypertension Constipation PLAN OF CARE MS floor O2 HHN PRN s/p EGD 09/20-> duodenal ulceration PPI BID soft diet as tolerated f/up with gastric biopsy monitor H&H with goal to keep Hgb > 7 CEA WNL abd US and CT A/P noted pain management prn IVF monitor renal parameters lytes ,correct electrolytes prn, avoid nephrotoxics DAY possibly due to GI bleeding BP management with CCB and add Clonidine prn , stable supportive care give MOM x 1 and Colace d/w GI dr Unger 09/21 if tolerates diet and stable HH, can be dc today able to tolerate diet can be dc on PPI bid x 2 months to allow duodenal ulcer healing outpatient fup with DR Danielle ( t does not have PMD) fup with gastric biopsy result case discussed and evaluated by supervising physician Nu Moseley NP Sep 23, 2019 08:48
[2019-09-23] MEDS ORDERED: ZOFRAN4 M3 ORAL (09:23)
[2019-09-23] MEDS ORDERED: PROTONIX40 MG ORAL (09:23)
[2019-09-23] MEDS ORDERED: Milk of Magnesia 30ml Ud ORAL SCH (11:30)
[2019-09-23] MEDS: Docusate 100mg cap ORAL SCH ×2 (11:50→17:06)
[2019-09-23 12:01] VITALS: BP 116/55
--- NOTE | 2019-09-23 13:49 | Internal Med Progress Note ---
Subjective Date of Service: Sep 23, 2019 Physician Name Emery Bui Attending Physician Aristides Danielle MD Current Medications Medications (Trade) Dose Ordered Sig/Iona Route PRN Reason Start Time Stop Time Status Last Admin Dose Admin Acetaminophen (Tylenol) 650 mg Q4H PRN ORAL fever 09/20/19 21:15 10/20/19 21:14 Amlodipine Besylate (Norvasc) 5 mg DAILY ORAL 09/22/19 09:15 10/22/19 09:14 09/23/19 08:22 Clonidine HCl (Catapres Tab) 0.1 mg Q6H PRN ORAL For High Blood Pressure 09/22/19 09:15 12/21/19 09:14 Dextrose (Dextrose 50%) 25 ml Q30M PRN IV Hypoglycemia 09/20/19 21:15 12/19/19 21:14 Dextrose (Dextrose 50%) 50 ml Q30M PRN IV Hypoglycemia 09/20/19 21:15 12/19/19 21:14 Dextrose/Sodium Chloride 1,000 ml @ 75 mls/hr [id number] IV 09/20/19 22:00 10/20/19 21:59 09/23/19 06:00 Diphenhydramine HCl (Benadryl) 25 mg Q6H PRN ORAL Itching/Pruritis 09/20/19 21:15 10/20/19 21:14 Docusate Sodium (Colace) 100 mg TWICE A DAY ORAL 09/23/19 11:30 10/23/19 11:29 09/23/19 11:50 Morphine Sulfate (Morphine Sulfate) 2 mg Q4H PRN IVP For Pain 09/20/19 23:15 09/27/19 23:14 09/22/19 14:06 Nitroglycerin (Ntg) 0.4 mg Q5M X 3 DOSES PRN SL Prn Chest Pain 09/20/19 21:15 10/20/19 21:14 Ondansetron HCl (Zofran) 4 mg Q6H PRN IVP Nausea & Vomiting 09/20/19 21:15 10/20/19 21:14 Pantoprazole (Protonix) 40 mg BID IVP 09/21/19 18:00 10/21/19 08:59 09/23/19 08:22 Polyethylene Glycol (Miralax) 17 gm HSPRN PRN ORAL Constipation 09/20/19 21:15 10/20/19 21:14 Temazepam (Restoril) 15 mg HSPRN PRN ORAL Insomnia 09/20/19 21:15 09/27/19 21:14 09/22/19 21:05 Allergies: Coded Allergies: No Known Allergies (Unverified , 09/20/19) ROS Limited/Unobtainable: No Constitutional: Reports: no symptoms HEENT: Reports: no symptoms Cardiovascular: Reports: no symptoms Respiratory: Reports: no symptoms Gastrointestinal/Abdominal: Reports: no symptoms Genitourinary: Reports: no symptoms Neurologic/Psychiatric: Reports: no symptoms Subjective 79 YO M admitted with hematemesis. Now duodenal ulcer. Cover for Int Med-DR Danielle. S/P endoscopy 09/21/19 Objective Last Vital Signs Date Time Temp Pulse Resp B/P (MAP) Pulse Ox O2 Delivery O2 Flow Rate FiO2 09/23/19 12:01 97.7 68 14 116/55 (75) 97 09/22/19 21:00 Room Air 09/21/19 15:20 3 Laboratory Tests Test 09/23/19 06:00 White Blood Count 5.6 K/UL (4.8-10.8) Red Blood Count 2.57 M/UL (4.70-6.10) L Hemoglobin 8.1 G/DL (14.2-18.0) L Hematocrit 24.2 % (42.0-52.0) L Mean Corpuscular Volume 94 FL (80-99) Mean Corpuscular Hemoglobin 31.5 PG (27.0-31.0) H Mean Corpuscular Hemoglobin Concent 33.5 G/DL (32.0-36.0) Red Cell Distribution Width 13.2 % (11.6-14.8) Platelet Count 215 K/UL (150-450) Mean Platelet Volume 6.2 FL (6.5-10.1) L Neutrophils (%) (Auto) 61.9 % (45.0-75.0) Lymphocytes (%) (Auto) 24.7 % (20.0-45.0) Monocytes (%) (Auto) 8.9 % (1.0-10.0) Eosinophils (%) (Auto) 3.5 % (0.0-3.0) H Basophils (%) (Auto) 1.1 % (0.0-2.0) Sodium Level 140 MMOL/L (136-145) Potassium Level 3.9 MMOL/L (3.5-5.1) Chloride Level 108 MMOL/L (98-107) H Carbon Dioxide Level 26 MMOL/L (21-32) Anion Gap 6 mmol/L (5-15) Blood Urea Nitrogen 11 mg/dL (7-18) Creatinine 1.5 MG/DL (0.55-1.30) H Estimat Glomerular Filtration Rate 54.5 mL/min (>60) Glucose Level 106 MG/DL (74-106) Calcium Level 7.5 MG/DL (8.5-10.1) L Intake and Output 09/22/19 09/23/19 19:00 07:00 Intake Total 2100 ml 1185 ml Output Total 400 ml Balance 2100 ml 785 ml Intake Oral 360 ml IV Total 900 ml 825 ml Other 1200 ml Output Urine Total 400 ml Objective PHYSICAL EXAMINATION: GENERAL: Patient is awake and responsive, in no acute distress. HEAD AND NECK: Pupils are equal and reactive to light. Extraocular movements intact. Neck was supple. No JVD. LUNGS: Clear. No wheezing or rales. HEART: S1, S2. Regular rhythm. No gallops. ABDOMEN: Soft. Tender in the epigastric area. No rebound tenderness. No fluid shift. EXTREMITIES: No cyanosis, clubbing, or edema NEUROLOGIC: Cranial nerves II through XII grossly normal. Motor is 5/5 all extremities. Gait was not assessed due to patient's status. RECTAL/GENITOURINARY: Refused and deferred. PSYCHIATRIC: Mood and affect is intact. Assessment/Plan Assessment/Plan ASSESSMENT: 1. RUQ Abdominal pain 2. upper GI bleed. 2. History of perforated gastric ulcer. 3. Hypertension. 4. Acute anemia due to the acute blood loss. 5. Acute kidney injury. 6. Aortic valve, status post repair. 7. Prior history of alcohol abuse. 8. Bleeding duodenal ulcer 9. Severe anemia PLAN: 1. Admit patient to medical floor. 2. Dr. Unger=Gastroenterology; S/P endoscopy 09/21/[address] Combs = Infectious Disease, 4. Dr. Cueva=Pulmonary/Critical Care. 5. Code status is Full code. 6. DVT prophylaxis is SCD. 7. Continue Protonix IV b.i.d. and Candido p.r.n. 8. S/P transfusion 1 unit PRBC Emery Bui MD Sep 23, 2019 13:49
[2019-09-23 15:50] VITALS: BP 123/90
[2019-09-23 20:20] VITALS: BP 123/60
--- NOTE | 2019-09-23 21:53 | General Progress Note ---
Assessment/Plan Assessment/Plan: Assessment/Plan - Abd pain - UGIB - Duodenal ulcer - anemia - HTN Recommendations - PPI - advance diet - monitor H&H - check and Rx H Pylori if (+) Subjective Allergies: Coded Allergies: No Known Allergies (Unverified , 09/20/19) Subjective above noted feels better s/p EGD --> DU tolerating po Objective Last 24 Hour Vital Signs Date Time Temp Pulse Resp B/P (MAP) Pulse Ox O2 Delivery O2 Flow Rate FiO2 09/23/19 20:20 97.7 76 19 123/60 (81) 96 09/23/19 15:50 98.3 87 18 123/90 (101) 96 09/23/19 12:01 97.7 68 14 116/55 (75) 97 09/23/19 08:22 71 109/48 09/23/19 08:00 97.5 76 20 139/73 (95) 100 09/23/19 04:00 97.5 71 20 109/48 (68) 97 Intake and Output 09/22/19 09/23/19 19:00 07:00 Intake Total 2100 ml 1185 ml Output Total 400 ml Balance 2100 ml 785 ml Intake Oral 360 ml IV Total 900 ml 825 ml Other 1200 ml Output Urine Total 400 ml Laboratory Tests 09/23/19 06:00: White Blood Count 5.6, Red Blood Count 2.57L, Hemoglobin 8.1L, Hematocrit 24.2L , Mean Corpuscular Volume 94, Mean Corpuscular Hemoglobin 31.5H, Mean Corpuscular Hemoglobin Concent 33.5, Red Cell Distribution Width 13.2, Platelet Count 215, Mean Platelet Volume 6.2L, Neutrophils (%) (Auto) 61.9, Lymphocytes ( %) (Auto) 24.7, Monocytes (%) (Auto) 8.9, Eosinophils (%) (Auto) 3.5H, Basophils (%) (Auto) 1.1, Sodium Level 140, Potassium Level 3.9, Chloride Level 108H, Carbon Dioxide Level 26, Anion Gap 6, Blood Urea Nitrogen 11, Creatinine 1.5H, Estimat Glomerular Filtration Rate 54.5, Glucose Level 106, Calcium Level 7.5L Height (Feet): 6 Height (Inches): 1.00 Weight (Pounds): 183 Objective WDWN NCAT supple CTA RRR Abd soft ND NT no edema Khorrami,Payman MD Sep 23, 2019 21:53
[2019-09-24 00:06] VITALS: BP 128/72
[2019-09-24 04:00] VITALS: BP 153/75
[2019-09-24 07:13] LABS: ANION GAP 6 mmol/L (5-15); BLOOD UREA NITROGEN 11 mg/dL (7-18); CALCIUM 8.1 MG/DL (8.5-10.1); CARBON DIOXIDE 28 MMOL/L (21-32); CHLORIDE 107 MMOL/L (98-107); CREATININE 1.6 MG/DL (0.55-1.30); POTASSIUM 4.5 MMOL/L (3.5-5.1); SODIUM 141 MMOL/L (136-145)
[2019-09-24 07:14] LABS: EOSINOPHILS % (AUTO) 3.1 % (0.0-3.0); HEMATOCRIT 26.9 % (42.0-52.0); HEMOGLOBIN 8.9 G/DL (14.2-18.0); LYMPHOCYTES % (AUTO) 20.9 % (20.0-45.0); MEAN CORPUSCULAR VOLUME 95 FL (80-99); MONOCYTES % (AUTO) 7.8 % (1.0-10.0); NEUTROPHILS % (AUTO) 67.2 % (45.0-75.0); PLATELET COUNT 235 K/UL (150-450); RED BLOOD COUNT 2.82 M/UL (4.70-6.10); RED CELL DISTRIBUTION WIDTH 13.9 % (11.6-14.8); WHITE BLOOD COUNT 5.8 K/UL (4.8-10.8)
[2019-09-24 08:00] VITALS: BP 103/71
[2019-09-24] MEDS: Docusate 100mg cap ORAL SCH ×2 (08:34→17:10)
[2019-09-24] MEDS ORDERED: Bisacodyl EC 5mg tab ORAL PRN (09:15)
[2019-09-24] MEDS ORDERED: Fleet's Enema 133ml RECTAL PRN (09:15)
[2019-09-24] MEDS: Morphine Sulfate 2mg/ml Inj(IV/IM USE ONLY) IVP PRN (10:01)
--- NOTE | 2019-09-24 10:41 | General Progress Note ---
Assessment/Plan Assessment/Plan: s/p EGD: SUMMARY OF FINDINGS: 1. Duodenal ulcerations, most probably the source of bleeding without any adherent clot or visible vessel. 2. Status post gastric biopsy. stable H&H ppi fu path bowel regimen ok for dc GI stand point Subjective ROS Limited/Unobtainable: Yes Allergies: Coded Allergies: No Known Allergies (Unverified , 09/20/19) Objective Last 24 Hour Vital Signs Date Time Temp Pulse Resp B/P (MAP) Pulse Ox O2 Delivery O2 Flow Rate FiO2 09/24/19 08:44 87 103/71 09/24/19 08:00 98.2 87 20 103/71 (82) 99 09/24/19 04:00 98.0 75 19 153/75 (101) 98 09/24/19 00:06 98.3 78 18 128/72 (90) 98 09/23/19 20:20 97.7 76 19 123/60 (81) 96 09/23/19 15:50 98.3 87 18 123/90 (101) 96 09/23/19 12:01 97.7 68 14 116/55 (75) 97 Intake and Output 09/23/19 09/24/19 19:00 07:00 Intake Total 855 ml Balance 855 ml Intake Oral 480 ml IV Total 375 ml # Voids 2 2 # Bowel Movements 1 Laboratory Tests 09/24/19 06:05: White Blood Count 5.8, Red Blood Count 2.82L, Hemoglobin 8.9L, Hematocrit 26.9L , Mean Corpuscular Volume 95, Mean Corpuscular Hemoglobin 31.6H, Mean Corpuscular Hemoglobin Concent 33.1, Red Cell Distribution Width 13.9, Platelet Count 235, Mean Platelet Volume 6.0L, Neutrophils (%) (Auto) 67.2, Lymphocytes ( %) (Auto) 20.9, Monocytes (%) (Auto) 7.8, Eosinophils (%) (Auto) 3.1H, Basophils (%) (Auto) 1.0, Sodium Level 141, Potassium Level 4.5, Chloride Level 107, Carbon Dioxide Level 28, Anion Gap 6, Blood Urea Nitrogen 11, Creatinine 1.6H, Estimat Glomerular Filtration Rate 50.7, Glucose Level 97, Calcium Level 8.1L Height (Feet): 6 Height (Inches): 1.00 Weight (Pounds): 183 General Appearance: no apparent distress EENT: normal ENT inspection Neck: supple Cardiovascular: normal rate Respiratory/Chest: lungs clear Abdomen: normal bowel sounds, non tender, soft Extremities: non-tender Primo Unger MD Sep 24, 2019 10:41
[2019-09-24] MEDS: Lactulose 20gm/30ml UDC ORAL SCH ×2 (10:45→17:10)
[2019-09-24 11:44] VITALS: BP 146/73
--- NOTE | 2019-09-24 12:14 | Pulmonology Progress Note ---
Subjective Constitutional: Reports: no symptoms HEENT: Repors: no symptoms Respiratory: Reports: no symptoms Allergies: Coded Allergies: No Known Allergies (Unverified , 09/20/19) Objective Last 24 Hour Vital Signs Date Time Temp Pulse Resp B/P (MAP) Pulse Ox O2 Delivery O2 Flow Rate FiO2 09/24/19 11:44 97.3 75 20 146/73 (97) 100 09/24/19 08:44 87 103/71 09/24/19 08:00 98.2 87 20 103/71 (82) 99 09/24/19 04:00 98.0 75 19 153/75 (101) 98 09/24/19 00:06 98.3 78 18 128/72 (90) 98 09/23/19 20:20 97.7 76 19 123/60 (81) 96 09/23/19 15:50 98.3 87 18 123/90 (101) 96 Intake and Output 09/23/19 09/24/19 19:00 07:00 Intake Total 855 ml Balance 855 ml Intake Oral 480 ml IV Total 375 ml # Voids 2 2 # Bowel Movements 1 General Appearance: WD/WN, no acute distress HEENT: normocephalic, anicteric, mucous membranes moist Respiratory: lungs clear, no respiratory distress, no accessory muscle use Cardiovascular: normal peripheral pulses, normal rate Abdomen: normal bowel sounds, soft, non tender, non distended Extremities: no edema, pedal pulses normal Neurologic: no motor/sensory deficits, alert, oriented x 3, responsive Musculoskeletal: normal muscle bulk Laboratory Tests 09/24/19 06:05: White Blood Count 5.8, Red Blood Count 2.82L, Hemoglobin 8.9L, Hematocrit 26.9L , Mean Corpuscular Volume 95, Mean Corpuscular Hemoglobin 31.6H, Mean Corpuscular Hemoglobin Concent 33.1, Red Cell Distribution Width 13.9, Platelet Count 235, Mean Platelet Volume 6.0L, Neutrophils (%) (Auto) 67.2, Lymphocytes ( %) (Auto) 20.9, Monocytes (%) (Auto) 7.8, Eosinophils (%) (Auto) 3.1H, Basophils (%) (Auto) 1.0, Sodium Level 141, Potassium Level 4.5, Chloride Level 107, Carbon Dioxide Level 28, Anion Gap 6, Blood Urea Nitrogen 11, Creatinine 1.6H, Estimat Glomerular Filtration Rate 50.7, Glucose Level 97, Calcium Level 8.1L Current Medications Medications (Trade) Dose Ordered Sig/Iona Route PRN Reason Start Time Stop Time Status Last Admin Dose Admin Acetaminophen (Tylenol) 650 mg Q4H PRN ORAL fever 09/20/19 21:15 10/20/19 21:14 Amlodipine Besylate (Norvasc) 5 mg DAILY ORAL 09/22/19 09:15 10/22/19 09:14 09/23/19 08:22 Bisacodyl (Dulcolax) 5 mg DAILYPRN PRN ORAL Constipation 09/24/19 09:15 12/23/19 09:14 09/24/19 09:57 Clonidine HCl (Catapres Tab) 0.1 mg Q6H PRN ORAL For High Blood Pressure 09/22/19 09:15 12/21/19 09:14 Dextrose (Dextrose 50%) 25 ml Q30M PRN IV Hypoglycemia 09/20/19 21:15 12/19/19 21:14 Dextrose (Dextrose 50%) 50 ml Q30M PRN IV Hypoglycemia 09/20/19 21:15 12/19/19 21:14 Diphenhydramine HCl (Benadryl) 25 mg Q6H PRN ORAL Itching/Pruritis 09/20/19 21:15 10/20/19 21:14 Docusate Sodium (Colace) 100 mg TWICE A DAY ORAL 09/23/19 11:30 10/23/19 11:29 09/24/19 08:34 Lactulose (Cephulac) 20 gm BID ORAL 09/24/19 10:45 10/24/19 10:44 Morphine Sulfate (Morphine Sulfate) 2 mg Q4H PRN IVP For Pain 09/20/19 23:15 09/27/19 23:14 09/24/19 10:01 Nitroglycerin (Ntg) 0.4 mg Q5M X 3 DOSES PRN SL Prn Chest Pain 09/20/19 21:15 10/20/19 21:14 Ondansetron HCl (Zofran) 4 mg Q6H PRN IVP Nausea & Vomiting 09/20/19 21:15 10/20/19 21:14 09/23/19 20:04 Pantoprazole (Protonix) 40 mg BID ORAL 09/23/19 18:00 10/23/19 17:59 09/24/19 08:34 Polyethylene Glycol (Miralax) 17 gm HSPRN PRN ORAL Constipation 09/20/19 21:15 10/20/19 21:14 09/23/19 20:04 Sodium Phosphate (Fleet's Sodium Phosl Enema) 133 ml DAILYPRN PRN RECTAL Constipation 09/24/19 09:15 10/24/19 09:14 Temazepam (Restoril) 15 mg HSPRN PRN ORAL Insomnia 09/20/19 21:15 09/27/19 21:14 09/23/19 21:15 Assessment/Plan Problems: (1) Duodenal ulcer (2) Upper GI bleeding (3) Intractable abdominal pain (4) History of gastric ulcer (5) Bullous emphysema Assessment/Plan H/H stable Creatinine slightly higher. CT / US of abdomen didn't show any renal pathology renal evaluation requested avoid nephrotoxic drugs h2 blockers GI notes reviewed. Shaunna Cueva MD Sep 24, 2019 12:14
--- NOTE | 2019-09-24 14:33 | Infectious Diseases Prog Note ---
Assessment/Plan Assessment/Plan Assessment: Afebrile No leukocytosis -u/a neg -CXR: no acute disease PUD RUQ/chest pain Hematemesis 09/20 SP EGD: duodenal ulcer -CT abd/p: No radiopaque cholelithiasis. Possible minimal pericholecystic stranding versus artifact. Correlate clinically for cholecystitis. Mildly thickened bowel which may be underdistention versus enteritis/colitis. No bowel obstruction or diverticulitis. Abd US: No cholelithiasis or evidence of acute cholecystitis. Anemia DAY, improving Aortic valve cyst s/p repair prior ETOH abuse Perforated gastric ulcer s/p repair ~40 yrs ago Plan -Continue to monitor off abx -09/19 SP Zosyn x1 -f/u cx -Monitor CBC/CMP, temperatures -aspiration precautions -GI f/u Thank you for this consultation. Will continue to follow along with you. Discussed with RN. Subjective Allergies: Coded Allergies: No Known Allergies (Unverified , 09/20/19) Subjective afebrile no leukocytosis Cr improving Objective Vital Signs Last 24 Hour Vital Signs Date Time Temp Pulse Resp B/P (MAP) Pulse Ox O2 Delivery O2 Flow Rate FiO2 09/24/19 11:44 97.3 75 20 146/73 (97) 100 09/24/19 08:44 87 103/71 09/24/19 08:00 98.2 87 20 103/71 (82) 99 09/24/19 04:00 98.0 75 19 153/75 (101) 98 09/24/19 00:06 98.3 78 18 128/72 (90) 98 09/23/19 20:20 97.7 76 19 123/60 (81) 96 09/23/19 15:50 98.3 87 18 123/90 (101) 96 Height (Feet): 6 Height (Inches): 1.00 Weight (Pounds): 183 Objective General Appearance: no apparent distress, alert Lines, tubes and drains: peripheral HEENT: normocephalic, atraumatic Neck: non-tender, normal alignment Respiratory/Chest: chest wall non-tender, lungs clear, normal breath sounds Cardiovascular/Chest: normal peripheral pulses, normal rate, regular rhythm Abdomen: normal bowel sounds, non tender Extremities: normal range of motion Laboratory Tests Test 09/24/19 06:05 White Blood Count 5.8 K/UL (4.8-10.8) Red Blood Count 2.82 M/UL (4.70-6.10) L Hemoglobin 8.9 G/DL (14.2-18.0) L Hematocrit 26.9 % (42.0-52.0) L Mean Corpuscular Volume 95 FL (80-99) Mean Corpuscular Hemoglobin 31.6 PG (27.0-31.0) H Mean Corpuscular Hemoglobin Concent 33.1 G/DL (32.0-36.0) Red Cell Distribution Width 13.9 % (11.6-14.8) Platelet Count 235 K/UL (150-450) Mean Platelet Volume 6.0 FL (6.5-10.1) L Neutrophils (%) (Auto) 67.2 % (45.0-75.0) Lymphocytes (%) (Auto) 20.9 % (20.0-45.0) Monocytes (%) (Auto) 7.8 % (1.0-10.0) Eosinophils (%) (Auto) 3.1 % (0.0-3.0) H Basophils (%) (Auto) 1.0 % (0.0-2.0) Sodium Level 141 MMOL/L (136-145) Potassium Level 4.5 MMOL/L (3.5-5.1) Chloride Level 107 MMOL/L (98-107) Carbon Dioxide Level 28 MMOL/L (21-32) Anion Gap 6 mmol/L (5-15) Blood Urea Nitrogen 11 mg/dL (7-18) Creatinine 1.6 MG/DL (0.55-1.30) H Estimat Glomerular Filtration Rate 50.7 mL/min (>60) Glucose Level 97 MG/DL (74-106) Calcium Level 8.1 MG/DL (8.5-10.1) L Current Medications Medications (Trade) Dose Ordered Sig/Iona Route PRN Reason Start Time Stop Time Status Last Admin Dose Admin Acetaminophen (Tylenol) 650 mg Q4H PRN ORAL fever 09/20/19 21:15 10/20/19 21:14 Amlodipine Besylate (Norvasc) 5 mg DAILY ORAL 09/22/19 09:15 10/22/19 09:14 09/23/19 08:22 Bisacodyl (Dulcolax) 5 mg DAILYPRN PRN ORAL Constipation 09/24/19 09:15 12/23/19 09:14 09/24/19 09:57 Clonidine HCl (Catapres Tab) 0.1 mg Q6H PRN ORAL For High Blood Pressure 09/22/19 09:15 12/21/19 09:14 Dextrose (Dextrose 50%) 25 ml Q30M PRN IV Hypoglycemia 09/20/19 21:15 12/19/19 21:14 Dextrose (Dextrose 50%) 50 ml Q30M PRN IV Hypoglycemia 09/20/19 21:15 12/19/19 21:14 Diphenhydramine HCl (Benadryl) 25 mg Q6H PRN ORAL Itching/Pruritis 09/20/19 21:15 10/20/19 21:14 Docusate Sodium (Colace) 100 mg TWICE A DAY ORAL 09/23/19 11:30 10/23/19 11:29 09/24/19 08:34 Lactulose (Cephulac) 20 gm BID ORAL 09/24/19 10:45 10/24/19 10:44 Morphine Sulfate (Morphine Sulfate) 2 mg Q4H PRN IVP For Pain 09/20/19 23:15 09/27/19 23:14 09/24/19 10:01 Nitroglycerin (Ntg) 0.4 mg Q5M X 3 DOSES PRN SL Prn Chest Pain 09/20/19 21:15 10/20/19 21:14 Ondansetron HCl (Zofran) 4 mg Q6H PRN IVP Nausea & Vomiting 09/20/19 21:15 10/20/19 21:14 09/23/19 20:04 Pantoprazole (Protonix) 40 mg BID ORAL 09/23/19 18:00 10/23/19 17:59 09/24/19 08:34 Polyethylene Glycol (Miralax) 17 gm HSPRN PRN ORAL Constipation 09/20/19 21:15 10/20/19 21:14 09/23/19 20:04 Sodium Phosphate (Fleet's Sodium Phosl Enema) 133 ml DAILYPRN PRN RECTAL Constipation 09/24/19 09:15 10/24/19 09:14 Temazepam (Restoril) 15 mg HSPRN PRN ORAL Insomnia 09/20/19 21:15 09/27/19 21:14 09/23/19 21:15 Sera Combs M.D. Sep 24, 2019 14:33
[2019-09-24 16:00] VITALS: BP 111/82
--- NOTE | 2019-09-24 18:22 | Internal Med Progress Note ---
Subjective Date of Service: Sep 24, 2019 Physician Name Emery Bui Attending Physician Aristides Danielle MD Current Medications Medications (Trade) Dose Ordered Sig/Iona Route PRN Reason Start Time Stop Time Status Last Admin Dose Admin Acetaminophen (Tylenol) 650 mg Q4H PRN ORAL fever 09/20/19 21:15 10/20/19 21:14 Amlodipine Besylate (Norvasc) 5 mg DAILY ORAL 09/22/19 09:15 10/22/19 09:14 09/23/19 08:22 Bisacodyl (Dulcolax) 5 mg DAILYPRN PRN ORAL Constipation 09/24/19 09:15 12/23/19 09:14 09/24/19 09:57 Clonidine HCl (Catapres Tab) 0.1 mg Q6H PRN ORAL For High Blood Pressure 09/22/19 09:15 12/21/19 09:14 Dextrose (Dextrose 50%) 25 ml Q30M PRN IV Hypoglycemia 09/20/19 21:15 12/19/19 21:14 Dextrose (Dextrose 50%) 50 ml Q30M PRN IV Hypoglycemia 09/20/19 21:15 12/19/19 21:14 Diphenhydramine HCl (Benadryl) 25 mg Q6H PRN ORAL Itching/Pruritis 09/20/19 21:15 10/20/19 21:14 Docusate Sodium (Colace) 100 mg TWICE A DAY ORAL 09/23/19 11:30 10/23/19 11:29 09/24/19 17:10 Lactulose (Cephulac) 20 gm BID ORAL 09/24/19 10:45 10/24/19 10:44 09/24/19 17:10 Morphine Sulfate (Morphine Sulfate) 2 mg Q4H PRN IVP For Pain 09/20/19 23:15 09/27/19 23:14 09/24/19 10:01 Nitroglycerin (Ntg) 0.4 mg Q5M X 3 DOSES PRN SL Prn Chest Pain 09/20/19 21:15 10/20/19 21:14 Ondansetron HCl (Zofran) 4 mg Q6H PRN IVP Nausea & Vomiting 09/20/19 21:15 10/20/19 21:14 09/23/19 20:04 Pantoprazole (Protonix) 40 mg BID ORAL 09/23/19 18:00 10/23/19 17:59 09/24/19 17:10 Polyethylene Glycol (Miralax) 17 gm HSPRN PRN ORAL Constipation 09/20/19 21:15 10/20/19 21:14 09/23/19 20:04 Sodium Phosphate (Fleet's Sodium Phosl Enema) 133 ml DAILYPRN PRN RECTAL Constipation 09/24/19 09:15 10/24/19 09:14 Temazepam (Restoril) 15 mg HSPRN PRN ORAL Insomnia 09/20/19 21:15 09/27/19 21:14 09/23/19 21:15 Allergies: Coded Allergies: No Known Allergies (Unverified , 09/20/19) ROS Limited/Unobtainable: No Constitutional: Reports: no symptoms HEENT: Reports: no symptoms Cardiovascular: Reports: no symptoms Respiratory: Reports: no symptoms Gastrointestinal/Abdominal: Reports: no symptoms Genitourinary: Reports: no symptoms Neurologic/Psychiatric: Reports: no symptoms Subjective 79 YO M admitted with hematemesis. Now duodenal ulcer. Cover for Int Med-DR Danielle. S/P endoscopy 09/21/19 Objective Last Vital Signs Date Time Temp Pulse Resp B/P (MAP) Pulse Ox O2 Delivery O2 Flow Rate FiO2 09/24/19 16:00 97.5 65 18 111/82 (92) 99 09/22/19 21:00 Room Air 09/21/19 15:20 3 Laboratory Tests Test 09/24/19 06:05 White Blood Count 5.8 K/UL (4.8-10.8) Red Blood Count 2.82 M/UL (4.70-6.10) L Hemoglobin 8.9 G/DL (14.2-18.0) L Hematocrit 26.9 % (42.0-52.0) L Mean Corpuscular Volume 95 FL (80-99) Mean Corpuscular Hemoglobin 31.6 PG (27.0-31.0) H Mean Corpuscular Hemoglobin Concent 33.1 G/DL (32.0-36.0) Red Cell Distribution Width 13.9 % (11.6-14.8) Platelet Count 235 K/UL (150-450) Mean Platelet Volume 6.0 FL (6.5-10.1) L Neutrophils (%) (Auto) 67.2 % (45.0-75.0) Lymphocytes (%) (Auto) 20.9 % (20.0-45.0) Monocytes (%) (Auto) 7.8 % (1.0-10.0) Eosinophils (%) (Auto) 3.1 % (0.0-3.0) H Basophils (%) (Auto) 1.0 % (0.0-2.0) Sodium Level 141 MMOL/L (136-145) Potassium Level 4.5 MMOL/L (3.5-5.1) Chloride Level 107 MMOL/L (98-107) Carbon Dioxide Level 28 MMOL/L (21-32) Anion Gap 6 mmol/L (5-15) Blood Urea Nitrogen 11 mg/dL (7-18) Creatinine 1.6 MG/DL (0.55-1.30) H Estimat Glomerular Filtration Rate 50.7 mL/min (>60) Glucose Level 97 MG/DL (74-106) Calcium Level 8.1 MG/DL (8.5-10.1) L Intake and Output 09/23/19 09/24/19 19:00 07:00 Intake Total 855 ml Balance 855 ml Intake Oral 480 ml IV Total 375 ml # Voids 2 2 # Bowel Movements 1 Objective PHYSICAL EXAMINATION: GENERAL: Patient is awake and responsive, in no acute distress. HEAD AND NECK: Pupils are equal and reactive to light. Extraocular movements intact. Neck was supple. No JVD. LUNGS: Clear. No wheezing or rales. HEART: S1, S2. Regular rhythm. No gallops. ABDOMEN: Soft. Tender in the epigastric area. No rebound tenderness. No fluid shift. EXTREMITIES: No cyanosis, clubbing, or edema NEUROLOGIC: Cranial nerves II through XII grossly normal. Motor is 5/5 all extremities. Gait was not assessed due to patient's status. RECTAL/GENITOURINARY: Refused and deferred. PSYCHIATRIC: Mood and affect is intact. Assessment/Plan Assessment/Plan ASSESSMENT: 1. RUQ Abdominal pain 2. upper GI bleed. 2. History of perforated gastric ulcer. 3. Hypertension. 4. Acute anemia due to the acute blood loss. 5. Acute kidney injury. 6. Aortic valve, status post repair. 7. Prior history of alcohol abuse. 8. Bleeding duodenal ulcer 9. Severe anemia PLAN: 1. Admit patient to medical floor. 2. Dr. Unger=Gastroenterology; S/P endoscopy 09/21/[address] Combs = Infectious Disease, 4. Dr. Cueva=Pulmonary/Critical Care. 5. Code status is Full code. 6. DVT prophylaxis is SCD. 7. Continue Protonix IV b.i.d. and Zofran p.r.n. 8. S/P transfusion 1 unit PRBC Emery Bui MD Sep 24, 2019 18:22
[2019-09-24 19:59] VITALS: BP 141/71
[2019-09-25 04:25] VITALS: BP 138/80
[2019-09-25 05:54] LABS: EOSINOPHILS % (AUTO) 3.6 % (0.0-3.0); HEMATOCRIT 25.8 % (42.0-52.0); HEMOGLOBIN 8.5 G/DL (14.2-18.0); LYMPHOCYTES % (AUTO) 24.5 % (20.0-45.0); MEAN CORPUSCULAR VOLUME 97 FL (80-99); MONOCYTES % (AUTO) 10.4 % (1.0-10.0); NEUTROPHILS % (AUTO) 60.5 % (45.0-75.0); PLATELET COUNT 236 K/UL (150-450); RED BLOOD COUNT 2.65 M/UL (4.70-6.10); RED CELL DISTRIBUTION WIDTH 14.6 % (11.6-14.8); WHITE BLOOD COUNT 6.4 K/UL (4.8-10.8)
[2019-09-25 06:31] LABS: ANION GAP 7 mmol/L (5-15); BLOOD UREA NITROGEN 14 mg/dL (7-18); CALCIUM 8.1 MG/DL (8.5-10.1); CARBON DIOXIDE 30 MMOL/L (21-32); CHLORIDE 105 MMOL/L (98-107); CREATININE 1.8 MG/DL (0.55-1.30); POTASSIUM 4.8 MMOL/L (3.5-5.1); SODIUM 141 MMOL/L (136-145)
[2019-09-25 08:00] VITALS: BP 122/67
[2019-09-25] MEDS: Docusate 100mg cap ORAL SCH ×2 (08:32→18:00)
[2019-09-25] MEDS: Lactulose 20gm/30ml UDC ORAL SCH ×2 (08:32→18:00)
--- NOTE | 2019-09-25 09:37 | Consultation ---
Consult Note Consult Note I was asked to evaluate the patient at the request of Dr. neely for worsening serum creatinine Patient interviewed Patient examined EMR records reviewed Discussed with RN This is an 79-year-old gentleman with past medical history significant for aortic valve, status post repair, prior history of alcohol abuse with history of perforated gastric ulcer status post repair about 40 years ago, history of hypertension who presented to the emergency department complaining about 3 weeks of intermittent chest pain associated with right upper quadrant abdominal pain, worsening over past 24 hours with multiple bloody emesis with small blood, bright red blood, and clots. Patient complained of chest tightness worsening last night with worsening when he lays down as well as after eating meals. Abdominal pain is described 10/10, sharp, stabbing, burning sensation. He has been having a lot of stress in his life. Shortly after initial evaluation in the emergency department, patient was noted to have hemoglobin of 9.[address] scan of the chest, abdomen, and pelvis, no radiographic cholelithiasis, possible minimal pericholecystic stranding versus artifact. Mild thickening of the bowels with undistended versus enteritis colitis. No bowel obstruction or diverticulitis was identified. Subsequently, patient was admitted to the hospital with abdominal pain and bloody emesis, most likely secondary to acute upper GI bleed and severe anemia. . Assessment/Plan Renal failure, acute on chronic Duodenal ulcer, upper GI breathing Intractable abdominal pain History of aortic valve disease status post repair History of alcohol abuse Bullous emphysema Anemia Hypertension Constipation Urine studies Flomax Adjust blood pressure medication IV bolus Monitor renal parameters Abdominal ultrasound results reviewed Echocardiogram ordered Martín Thomson MD Sep 25, 2019 09:37
[2019-09-25 09:46] LABS: % IRON SATURATION 9 % (15-50); IRON 21 ug/dL (50-175); TOTAL IRON BINDING CAPACITY 232 ug/dL (250-450)
[2019-09-25 09:53] LABS: ALANINE AMINOTRANSFERASE 18 U/L (12-78); ALBUMIN 2.9 G/DL (3.4-5.0); ALKALINE PHOSPHATASE 71 U/L (46-116); ASPARTATE AMINO TRANSFERASE 19 U/L (15-37); BILIRUBIN,DIRECT 0.1 MG/DL (0.0-0.3); BILIRUBIN,TOTAL 0.4 MG/DL (0.2-1.0); PHOSPHORUS 4.2 MG/DL (2.5-4.9)
--- NOTE | 2019-09-25 10:06 | General Progress Note ---
Assessment/Plan Assessment/Plan: s/p EGD: SUMMARY OF FINDINGS: 1. Duodenal ulcerations, most probably the source of bleeding without any adherent clot or visible vessel. 2. Status post gastric biopsy. stable H&H ppi fu path bowel regimen>> patient refusing today fu nephrology Subjective ROS Limited/Unobtainable: Yes Allergies: Coded Allergies: No Known Allergies (Unverified , 09/20/19) Objective Last 24 Hour Vital Signs Date Time Temp Pulse Resp B/P (MAP) Pulse Ox O2 Delivery O2 Flow Rate FiO2 09/25/19 09:00 Room Air 09/25/19 08:33 87 122/67 09/25/19 08:00 97.5 87 18 122/67 (85) 99 09/25/19 04:25 98.0 80 16 138/80 (99) 98 09/24/19 19:59 97.2 77 18 141/71 (94) 100 09/24/19 16:00 97.5 65 18 111/82 (92) 99 09/24/19 11:44 97.3 75 20 146/73 (97) 100 Intake and Output 09/24/19 09/25/19 19:00 07:00 Intake Total 600 ml 800 ml Balance 600 ml 800 ml Intake Oral 600 ml 800 ml # Voids 3 4 # Bowel Movements 2 Laboratory Tests 09/24/19 19:40: Stool Occult Blood [Pending] 09/25/19 05:05: Iron Level 21L, Total Iron Binding Capacity 232L, Percent Iron Saturation 9L, Unsaturated Iron Binding 211 09/25/19 05:09: White Blood Count 6.4, Red Blood Count 2.65L, Hemoglobin 8.5L, Hematocrit 25.8L , Mean Corpuscular Volume 97, Mean Corpuscular Hemoglobin 31.9H, Mean Corpuscular Hemoglobin Concent 32.8, Red Cell Distribution Width 14.6, Platelet Count 236, Mean Platelet Volume 5.9L, Neutrophils (%) (Auto) 60.5, Lymphocytes ( %) (Auto) 24.5, Monocytes (%) (Auto) 10.4H, Eosinophils (%) (Auto) 3.6H, Basophils (%) (Auto) 1.0, Sodium Level 141, Potassium Level 4.8, Chloride Level 105, Carbon Dioxide Level 30, Anion Gap 7, Blood Urea Nitrogen 14, Creatinine 1.8H, Estimat Glomerular Filtration Rate 44.2, Glucose Level 106, Calcium Level 8.1L 09/25/19 05:59: Uric Acid 6.4, Phosphorus Level 4.2, Magnesium Level 2.3, Total Bilirubin 0.4, Direct Bilirubin 0.1, Aspartate Amino Transf (AST/SGOT) 19, Alanine Aminotransferase (ALT/SGPT) 18, Alkaline Phosphatase 71, Total Protein 5.3L, Albumin 2.9L, Prostate Specific Antigen 3.31 Height (Feet): 6 Height (Inches): 1.00 Weight (Pounds): 183 General Appearance: alert EENT: normal ENT inspection Neck: supple Cardiovascular: normal rate Respiratory/Chest: decreased breath sounds Abdomen: normal bowel sounds, non tender, soft Extremities: non-tender Primo Unger MD Sep 25, 2019 10:06
[2019-09-25] MEDS ORDERED: Albumin Human 5% 250ml IV SCH (10:15)
[2019-09-25] MEDS: Tamsulosin 0.4mg cap ORAL SCH ×2 (10:32→18:21)
--- NOTE | 2019-09-25 11:41 | Infectious Diseases Prog Note ---
Assessment/Plan Assessment/Plan Assessment: Afebrile No leukocytosis -u/a neg -CXR: no acute disease PUD RUQ/chest pain Hematemesis 09/20 SP EGD: duodenal ulcer -CT abd/p: No radiopaque cholelithiasis. Possible minimal pericholecystic stranding versus artifact. Correlate clinically for cholecystitis. Mildly thickened bowel which may be underdistention versus enteritis/colitis. No bowel obstruction or diverticulitis. Abd US: No cholelithiasis or evidence of acute cholecystitis. Anemia DAY, improving Aortic valve cyst s/p repair prior ETOH abuse Perforated gastric ulcer s/p repair ~40 yrs ago Plan -Continue to monitor off abx -09/19 SP Zosyn x1 -f/u cx -Monitor CBC/CMP, temperatures -aspiration precautions -GI f/u Thank you for this consultation. Will continue to follow along with you. Discussed with RN. Subjective Allergies: Coded Allergies: No Known Allergies (Unverified , 09/20/19) Subjective afebrile no leukocytosis Objective Vital Signs Last 24 Hour Vital Signs Date Time Temp Pulse Resp B/P (MAP) Pulse Ox O2 Delivery O2 Flow Rate FiO2 09/25/19 09:00 Room Air 09/25/19 08:33 87 122/67 09/25/19 08:00 97.5 87 18 122/67 (85) 99 09/25/19 04:25 98.0 80 16 138/80 (99) 98 09/24/19 19:59 97.2 77 18 141/71 (94) 100 09/24/19 16:00 97.5 65 18 111/82 (92) 99 09/24/19 11:44 97.3 75 20 146/73 (97) 100 Height (Feet): 6 Height (Inches): 1.00 Weight (Pounds): 183 Objective General Appearance: no apparent distress, alert Lines, tubes and drains: peripheral HEENT: normocephalic, atraumatic Neck: non-tender, normal alignment Respiratory/Chest: chest wall non-tender, lungs clear, normal breath sounds Cardiovascular/Chest: normal peripheral pulses, normal rate, regular rhythm Abdomen: normal bowel sounds, non tender Extremities: normal range of motion Laboratory Tests Test 09/24/19 19:40 09/25/19 05:05 09/25/19 05:09 09/25/19 05:59 Stool Occult Blood Pending Iron Level 21 ug/dL (50-175) L Total Iron Binding Capacity 232 ug/dL (250-450) L Percent Iron Saturation 9 % (15-50) L Unsaturated Iron Binding 211 ug/dL (112-346) White Blood Count 6.4 K/UL (4.8-10.8) Red Blood Count 2.65 M/UL (4.70-6.10) L Hemoglobin 8.5 G/DL (14.2-18.0) L Hematocrit 25.8 % (42.0-52.0) L Mean Corpuscular Volume 97 FL (80-99) Mean Corpuscular Hemoglobin 31.9 PG (27.0-31.0) H Mean Corpuscular Hemoglobin Concent 32.8 G/DL (32.0-36.0) Red Cell Distribution Width 14.6 % (11.6-14.8) Platelet Count 236 K/UL (150-450) Mean Platelet Volume 5.9 FL (6.5-10.1) L Neutrophils (%) (Auto) 60.5 % (45.0-75.0) Lymphocytes (%) (Auto) 24.5 % (20.0-45.0) Monocytes (%) (Auto) 10.4 % (1.0-10.0) H Eosinophils (%) (Auto) 3.6 % (0.0-3.0) H Basophils (%) (Auto) 1.0 % (0.0-2.0) Sodium Level 141 MMOL/L (136-145) Potassium Level 4.8 MMOL/L (3.5-5.1) Chloride Level 105 MMOL/L (98-107) Carbon Dioxide Level 30 MMOL/L (21-32) Anion Gap 7 mmol/L (5-15) Blood Urea Nitrogen 14 mg/dL (7-18) Creatinine 1.8 MG/DL (0.55-1.30) H Estimat Glomerular Filtration Rate 44.2 mL/min (>60) Glucose Level 106 MG/DL (74-106) Calcium Level 8.1 MG/DL (8.5-10.1) L Uric Acid 6.4 MG/DL (2.6-7.2) Phosphorus Level 4.2 MG/DL (2.5-4.9) Magnesium Level 2.3 MG/DL (1.8-2.4) Total Bilirubin 0.4 MG/DL (0.2-1.0) Direct Bilirubin 0.1 MG/DL (0.0-0.3) Aspartate Amino Transf (AST/SGOT) 19 U/L (15-37) Alanine Aminotransferase (ALT/SGPT) 18 U/L (12-78) Alkaline Phosphatase 71 U/L (46-116) Total Protein 5.3 G/DL (6.4-8.2) L Albumin 2.9 G/DL (3.4-5.0) L Prostate Specific Antigen 3.31 ng/mL (0.13-4.0) Current Medications Medications (Trade) Dose Ordered Sig/Iona Route PRN Reason Start Time Stop Time Status Last Admin Dose Admin Acetaminophen (Tylenol) 650 mg Q4H PRN ORAL fever 09/20/19 21:15 10/20/19 21:14 Albumin Human (Albuminar-5) 250 ml ONCE IV 09/25/19 10:15 09/25/19 12:00 09/25/19 10:32 Amlodipine Besylate (Norvasc) 2.5 mg DAILY ORAL 09/26/19 09:00 10/22/19 09:14 Bisacodyl (Dulcolax) 5 mg DAILYPRN PRN ORAL Constipation 09/24/19 09:15 12/23/19 09:14 09/24/19 09:57 Clonidine HCl (Catapres Tab) 0.1 mg Q6H PRN ORAL For High Blood Pressure 09/22/19 09:15 12/21/19 09:14 Dextrose (Dextrose 50%) 25 ml Q30M PRN IV Hypoglycemia 09/20/19 21:15 12/19/19 21:14 Dextrose (Dextrose 50%) 50 ml Q30M PRN IV Hypoglycemia 09/20/19 21:15 12/19/19 21:14 Diphenhydramine HCl (Benadryl) 25 mg Q6H PRN ORAL Itching/Pruritis 09/20/19 21:15 10/20/19 21:14 Docusate Sodium (Colace) 100 mg TWICE A DAY ORAL 09/23/19 11:30 10/23/19 11:29 09/24/19 17:10 Lactulose (Cephulac) 20 gm BID ORAL 09/24/19 10:45 10/24/19 10:44 09/24/19 17:10 Morphine Sulfate (Morphine Sulfate) 2 mg Q4H PRN IVP For Pain 09/20/19 23:15 09/27/19 23:14 09/24/19 10:01 Nitroglycerin (Ntg) 0.4 mg Q5M X 3 DOSES PRN SL Prn Chest Pain 09/20/19 21:15 10/20/19 21:14 Ondansetron HCl (Zofran) 4 mg Q6H PRN IVP Nausea & Vomiting 09/20/19 21:15 10/20/19 21:14 09/23/19 20:04 Pantoprazole (Protonix) 40 mg BID ORAL 09/23/19 18:00 10/23/19 17:59 09/25/19 08:32 Polyethylene Glycol (Miralax) 17 gm HSPRN PRN ORAL Constipation 09/20/19 21:15 10/20/19 21:14 09/23/19 20:04 Sodium Phosphate (Fleet's Sodium Phosl Enema) 133 ml DAILYPRN PRN RECTAL Constipation 09/24/19 09:15 10/24/19 09:14 Tamsulosin HCl (Flomax) 0.4 mg BID ORAL 09/25/19 10:00 10/25/19 20:59 09/25/19 10:32 Temazepam (Restoril) 15 mg HSPRN PRN ORAL Insomnia 09/20/19 21:15 09/27/19 21:14 09/24/19 21:41 Sera Combs M.D. Sep 25, 2019 11:41
[2019-09-25 12:05] VITALS: BP 120/70
--- NOTE | 2019-09-25 13:19 | Pulmonology Progress Note ---
Subjective ROS Limited/Unobtainable: Yes Constitutional: Reports: no symptoms HEENT: Repors: no symptoms Respiratory: Reports: no symptoms Allergies: Coded Allergies: No Known Allergies (Unverified , 09/20/19) Objective Last 24 Hour Vital Signs Date Time Temp Pulse Resp B/P (MAP) Pulse Ox O2 Delivery O2 Flow Rate FiO2 09/25/19 12:05 97.6 72 18 120/70 (87) 99 09/25/19 09:00 Room Air 09/25/19 08:33 87 122/67 09/25/19 08:00 97.5 87 18 122/67 (85) 99 09/25/19 04:25 98.0 80 16 138/80 (99) 98 09/24/19 19:59 97.2 77 18 141/71 (94) 100 09/24/19 16:00 97.5 65 18 111/82 (92) 99 Intake and Output 09/24/19 09/25/19 19:00 07:00 Intake Total 600 ml 800 ml Balance 600 ml 800 ml Intake Oral 600 ml 800 ml # Voids 3 4 # Bowel Movements 2 General Appearance: WD/WN, no acute distress HEENT: normocephalic, anicteric, mucous membranes moist Respiratory: lungs clear, no respiratory distress, no accessory muscle use Cardiovascular: normal peripheral pulses, normal rate Abdomen: normal bowel sounds, soft, non tender, non distended Extremities: no edema, pedal pulses normal Neurologic: no motor/sensory deficits, alert, oriented x 3, responsive Musculoskeletal: normal muscle bulk Laboratory Tests 09/24/19 19:40: Stool Occult Blood Positive 09/25/19 05:05: Iron Level 21L, Total Iron Binding Capacity 232L, Percent Iron Saturation 9L, Unsaturated Iron Binding 211 09/25/19 05:09: White Blood Count 6.4, Red Blood Count 2.65L, Hemoglobin 8.5L, Hematocrit 25.8L , Mean Corpuscular Volume 97, Mean Corpuscular Hemoglobin 31.9H, Mean Corpuscular Hemoglobin Concent 32.8, Red Cell Distribution Width 14.6, Platelet Count 236, Mean Platelet Volume 5.9L, Neutrophils (%) (Auto) 60.5, Lymphocytes ( %) (Auto) 24.5, Monocytes (%) (Auto) 10.4H, Eosinophils (%) (Auto) 3.6H, Basophils (%) (Auto) 1.0, Sodium Level 141, Potassium Level 4.8, Chloride Level 105, Carbon Dioxide Level 30, Anion Gap 7, Blood Urea Nitrogen 14, Creatinine 1.8H, Estimat Glomerular Filtration Rate 44.2, Glucose Level 106, Calcium Level 8.1L 09/25/19 05:59: Uric Acid 6.4, Phosphorus Level 4.2, Magnesium Level 2.3, Total Bilirubin 0.4, Direct Bilirubin 0.1, Aspartate Amino Transf (AST/SGOT) 19, Alanine Aminotransferase (ALT/SGPT) 18, Alkaline Phosphatase 71, Total Protein 5.3L, Albumin 2.9L, Prostate Specific Antigen 3.31 Current Medications Medications (Trade) Dose Ordered Sig/Iona Route PRN Reason Start Time Stop Time Status Last Admin Dose Admin Acetaminophen (Tylenol) 650 mg Q4H PRN ORAL fever 09/20/19 21:15 10/20/19 21:14 Amlodipine Besylate (Norvasc) 2.5 mg DAILY ORAL 09/26/19 09:00 10/22/19 09:14 Bisacodyl (Dulcolax) 5 mg DAILYPRN PRN ORAL Constipation 09/24/19 09:15 12/23/19 09:14 09/24/19 09:57 Clonidine HCl (Catapres Tab) 0.1 mg Q6H PRN ORAL For High Blood Pressure 09/22/19 09:15 12/21/19 09:14 Dextrose (Dextrose 50%) 25 ml Q30M PRN IV Hypoglycemia 09/20/19 21:15 12/19/19 21:14 Dextrose (Dextrose 50%) 50 ml Q30M PRN IV Hypoglycemia 09/20/19 21:15 12/19/19 21:14 Diphenhydramine HCl (Benadryl) 25 mg Q6H PRN ORAL Itching/Pruritis 09/20/19 21:15 10/20/19 21:14 Docusate Sodium (Colace) 100 mg TWICE A DAY ORAL 09/23/19 11:30 10/23/19 11:29 09/24/19 17:10 Lactulose (Cephulac) 20 gm BID ORAL 09/24/19 10:45 10/24/19 10:44 09/24/19 17:10 Morphine Sulfate (Morphine Sulfate) 2 mg Q4H PRN IVP For Pain 09/20/19 23:15 09/27/19 23:14 09/24/19 10:01 Nitroglycerin (Ntg) 0.4 mg Q5M X 3 DOSES PRN SL Prn Chest Pain 09/20/19 21:15 10/20/19 21:14 Ondansetron HCl (Zofran) 4 mg Q6H PRN IVP Nausea & Vomiting 09/20/19 21:15 10/20/19 21:14 09/23/19 20:04 Pantoprazole (Protonix) 40 mg BID ORAL 09/23/19 18:00 10/23/19 17:59 09/25/19 08:32 Polyethylene Glycol (Miralax) 17 gm HSPRN PRN ORAL Constipation 09/20/19 21:15 10/20/19 21:14 09/23/19 20:04 Sodium Phosphate (Fleet's Sodium Phosl Enema) 133 ml DAILYPRN PRN RECTAL Constipation 09/24/19 09:15 10/24/19 09:14 Tamsulosin HCl (Flomax) 0.4 mg BID ORAL 09/25/19 10:00 10/25/19 20:59 09/25/19 10:32 Temazepam (Restoril) 15 mg HSPRN PRN ORAL Insomnia 09/20/19 21:15 09/27/19 21:14 09/24/19 21:41 Assessment/Plan Problems: (1) Duodenal ulcer (2) Acute on chronic renal insufficiency (3) Upper GI bleeding (4) Intractable abdominal pain (5) History of gastric ulcer (6) Bullous emphysema Assessment/Plan start venofer IV H/H stable Creatinine slightly higher. CT / US of abdomen didn't show any renal pathology renal evaluation reviewed avoid nephrotoxic drugs h2 blockers GI notes reviewed. pt not cooperating with bowel regimen today Shaunna Cueva MD Sep 25, 2019 13:19
[2019-09-25] MEDS ORDERED: Iron Sucrose 200 MG in NS 110 ML IV SCH (15:00)
[2019-09-25 16:25] VITALS: BP 132/71
--- NOTE | 2019-09-25 16:41 | Internal Med Progress Note ---
Subjective Date of Service: Sep 25, 2019 Physician Name Bui,Emery Attending Physician Aristides Danielle MD Current Medications Medications (Trade) Dose Ordered Sig/Iona Route PRN Reason Start Time Stop Time Status Last Admin Dose Admin Acetaminophen (Tylenol) 650 mg Q4H PRN ORAL fever 09/20/19 21:15 10/20/19 21:14 Amlodipine Besylate (Norvasc) 2.5 mg DAILY ORAL 09/26/19 09:00 10/22/19 09:14 Bisacodyl (Dulcolax) 5 mg DAILYPRN PRN ORAL Constipation 09/24/19 09:15 12/23/19 09:14 09/24/19 09:57 Clonidine HCl (Catapres Tab) 0.1 mg Q6H PRN ORAL For High Blood Pressure 09/22/19 09:15 12/21/19 09:14 Dextrose (Dextrose 50%) 25 ml Q30M PRN IV Hypoglycemia 09/20/19 21:15 12/19/19 21:14 Dextrose (Dextrose 50%) 50 ml Q30M PRN IV Hypoglycemia 09/20/19 21:15 12/19/19 21:14 Diphenhydramine HCl (Benadryl) 25 mg Q6H PRN ORAL Itching/Pruritis 09/20/19 21:15 10/20/19 21:14 Docusate Sodium (Colace) 100 mg TWICE A DAY ORAL 09/23/19 11:30 10/23/19 11:29 09/24/19 17:10 Lactulose (Cephulac) 20 gm BID ORAL 09/24/19 10:45 10/24/19 10:44 09/24/19 17:10 Morphine Sulfate (Morphine Sulfate) 2 mg Q4H PRN IVP For Pain 09/20/19 23:15 09/27/19 23:14 09/24/19 10:01 Nitroglycerin (Ntg) 0.4 mg Q5M X 3 DOSES PRN SL Prn Chest Pain 09/20/19 21:15 10/20/19 21:14 Ondansetron HCl (Zofran) 4 mg Q6H PRN IVP Nausea & Vomiting 09/20/19 21:15 10/20/19 21:14 09/23/19 20:04 Pantoprazole (Protonix) 40 mg BID ORAL 09/23/19 18:00 10/23/19 17:59 09/25/19 08:32 Polyethylene Glycol (Miralax) 17 gm HSPRN PRN ORAL Constipation 09/20/19 21:15 10/20/19 21:14 09/23/19 20:04 Sodium Phosphate (Fleet's Sodium Phosl Enema) 133 ml DAILYPRN PRN RECTAL Constipation 09/24/19 09:15 10/24/19 09:14 Tamsulosin HCl (Flomax) 0.4 mg BID ORAL 09/25/19 10:00 10/25/19 20:59 09/25/19 10:32 Temazepam (Restoril) 15 mg HSPRN PRN ORAL Insomnia 09/20/19 21:15 09/27/19 21:14 09/24/19 21:41 Allergies: Coded Allergies: No Known Allergies (Unverified , 09/20/19) ROS Limited/Unobtainable: No Constitutional: Reports: no symptoms HEENT: Reports: no symptoms Cardiovascular: Reports: no symptoms Respiratory: Reports: no symptoms Gastrointestinal/Abdominal: Reports: no symptoms Genitourinary: Reports: no symptoms Neurologic/Psychiatric: Reports: no symptoms Subjective 79 YO M admitted with hematemesis. Now duodenal ulcer. Cover for Int Med-DR Danielle. S/P endoscopy 09/21/19 Objective Last Vital Signs Date Time Temp Pulse Resp B/P (MAP) Pulse Ox O2 Delivery O2 Flow Rate FiO2 09/25/19 16:25 97.7 65 17 132/71 (91) 99 09/25/19 09:00 Room Air 09/21/19 15:20 3 Laboratory Tests Test 09/24/19 19:40 09/25/19 05:05 09/25/19 05:09 09/25/19 05:59 Stool Occult Blood Positive (NEGATIVE) Iron Level 21 ug/dL (50-175) L Total Iron Binding Capacity 232 ug/dL (250-450) L Percent Iron Saturation 9 % (15-50) L Unsaturated Iron Binding 211 ug/dL (112-346) White Blood Count 6.4 K/UL (4.8-10.8) Red Blood Count 2.65 M/UL (4.70-6.10) L Hemoglobin 8.5 G/DL (14.2-18.0) L Hematocrit 25.8 % (42.0-52.0) L Mean Corpuscular Volume 97 FL (80-99) Mean Corpuscular Hemoglobin 31.9 PG (27.0-31.0) H Mean Corpuscular Hemoglobin Concent 32.8 G/DL (32.0-36.0) Red Cell Distribution Width 14.6 % (11.6-14.8) Platelet Count 236 K/UL (150-450) Mean Platelet Volume 5.9 FL (6.5-10.1) L Neutrophils (%) (Auto) 60.5 % (45.0-75.0) Lymphocytes (%) (Auto) 24.5 % (20.0-45.0) Monocytes (%) (Auto) 10.4 % (1.0-10.0) H Eosinophils (%) (Auto) 3.6 % (0.0-3.0) H Basophils (%) (Auto) 1.0 % (0.0-2.0) Sodium Level 141 MMOL/L (136-145) Potassium Level 4.8 MMOL/L (3.5-5.1) Chloride Level 105 MMOL/L (98-107) Carbon Dioxide Level 30 MMOL/L (21-32) Anion Gap 7 mmol/L (5-15) Blood Urea Nitrogen 14 mg/dL (7-18) Creatinine 1.8 MG/DL (0.55-1.30) H Estimat Glomerular Filtration Rate 44.2 mL/min (>60) Glucose Level 106 MG/DL (74-106) Calcium Level 8.1 MG/DL (8.5-10.1) L Uric Acid 6.4 MG/DL (2.6-7.2) Phosphorus Level 4.2 MG/DL (2.5-4.9) Magnesium Level 2.3 MG/DL (1.8-2.4) Total Bilirubin 0.4 MG/DL (0.2-1.0) Direct Bilirubin 0.1 MG/DL (0.0-0.3) Aspartate Amino Transf (AST/SGOT) 19 U/L (15-37) Alanine Aminotransferase (ALT/SGPT) 18 U/L (12-78) Alkaline Phosphatase 71 U/L (46-116) Total Protein 5.3 G/DL (6.4-8.2) L Albumin 2.9 G/DL (3.4-5.0) L Prostate Specific Antigen 3.31 ng/mL (0.13-4.0) Intake and Output 09/24/19 09/25/19 19:00 07:00 Intake Total 600 ml 800 ml Balance 600 ml 800 ml Intake Oral 600 ml 800 ml # Voids 3 4 # Bowel Movements 2 Objective PHYSICAL EXAMINATION: GENERAL: Patient is awake and responsive, in no acute distress. HEAD AND NECK: Pupils are equal and reactive to light. Extraocular movements intact. Neck was supple. No JVD. LUNGS: Clear. No wheezing or rales. HEART: S1, S2. Regular rhythm. No gallops. ABDOMEN: Soft. Tender in the epigastric area. No rebound tenderness. No fluid shift. EXTREMITIES: No cyanosis, clubbing, or edema NEUROLOGIC: Cranial nerves II through XII grossly normal. Motor is 5/5 all extremities. Gait was not assessed due to patient's status. RECTAL/GENITOURINARY: Refused and deferred. PSYCHIATRIC: Mood and affect is intact. Assessment/Plan Assessment/Plan ASSESSMENT: 1. RUQ Abdominal pain 2. upper GI bleed. 2. History of perforated gastric ulcer. 3. Hypertension. 4. Acute anemia due to the acute blood loss. 5. Acute kidney injury. 6. Aortic valve, status post repair. 7. Prior history of alcohol abuse. 8. Bleeding duodenal ulcer 9. Severe anemia PLAN: 1. Admit patient to medical floor. 2. Dr. Unger=Gastroenterology; S/P endoscopy 09/21/[address] Combs = Infectious Disease, 4. Dr. Cueva=Pulmonary/Critical Care. 5. Code status is Full code. 6. DVT prophylaxis is SCD. 7. Continue Protonix IV b.i.d. and Zofran p.r.n. 8. S/P transfusion 1 unit PRBC 9. refused bowel regimen Emery Bui MD Sep 25, 2019 16:41
[2019-09-25 20:36] VITALS: BP 129/66
[2019-09-25] MEDS ORDERED: Tamsulosin 0.4mg cap ORAL SCH (21:00)
[2019-09-26 00:02] VITALS: BP 101/58
[2019-09-26] MEDS: Morphine Sulfate 2mg/ml Inj(IV/IM USE ONLY) IVP PRN (00:44)
[2019-09-26 03:53] VITALS: BP 101/45
[2019-09-26 06:26] LABS: BASOPHILS % (AUTO) 1.1 % (0.0-2.0); EOSINOPHILS % (AUTO) 4.1 % (0.0-3.0); HEMATOCRIT 24.8 % (42.0-52.0); HEMOGLOBIN 8.1 G/DL (14.2-18.0); LYMPHOCYTES % (AUTO) 25.2 % (20.0-45.0); MEAN CORPUSCULAR VOLUME 96 FL (80-99); MONOCYTES % (AUTO) 9.3 % (1.0-10.0); NEUTROPHILS % (AUTO) 60.3 % (45.0-75.0); PLATELET COUNT 231 K/UL (150-450); RED BLOOD COUNT 2.57 M/UL (4.70-6.10)
[2019-09-26 07:04] LABS: ANION GAP 6 mmol/L (5-15); BLOOD UREA NITROGEN 15 mg/dL (7-18); CALCIUM 7.8 MG/DL (8.5-10.1); CARBON DIOXIDE 29 MMOL/L (21-32); CHLORIDE 107 MMOL/L (98-107); CREATININE 1.6 MG/DL (0.55-1.30); POTASSIUM 4.7 MMOL/L (3.5-5.1); SODIUM 142 MMOL/L (136-145)
[2019-09-26 08:00] VITALS: BP 103/50
[2019-09-26] MEDS: Tamsulosin 0.4mg cap ORAL SCH (08:24)
[2019-09-26] MEDS: Lactulose 20gm/30ml UDC ORAL SCH (08:24)
[2019-09-26] MEDS: Docusate 100mg cap ORAL SCH (08:24)
--- NOTE | 2019-09-26 11:52 | General Progress Note ---
Assessment/Plan Assessment/Plan: s/p EGD: SUMMARY OF FINDINGS: 1. Duodenal ulcerations, most probably the source of bleeding without any adherent clot or visible vessel. 2. Status post gastric biopsy. stable H&H ppi fu path fu nephrology Subjective ROS Limited/Unobtainable: Yes Allergies: Coded Allergies: No Known Allergies (Unverified , 09/20/19) Objective Last 24 Hour Vital Signs Date Time Temp Pulse Resp B/P (MAP) Pulse Ox O2 Delivery O2 Flow Rate FiO2 09/26/19 08:00 97.7 70 20 103/50 (67) 97 09/26/19 03:53 97.7 66 20 101/45 (63) 96 09/26/19 01:15 97.5 09/26/19 00:02 97.5 83 20 101/58 (72) 96 09/25/19 20:36 97.5 77 18 129/66 (87) 97 09/25/19 16:25 97.7 65 17 132/71 (91) 99 09/25/19 12:05 97.6 72 18 120/70 (87) 99 Intake and Output 09/25/19 09/26/19 19:00 07:00 Intake Total 800 ml 360 ml Balance 800 ml 360 ml Intake Oral 800 ml Other 360 ml # Voids 3 3 Laboratory Tests 09/26/19 05:30: White Blood Count 5.0, Red Blood Count 2.57L, Hemoglobin 8.1L, Hematocrit 24.8L , Mean Corpuscular Volume 96, Mean Corpuscular Hemoglobin 31.4H, Mean Corpuscular Hemoglobin Concent 32.6, Red Cell Distribution Width 14.0, Platelet Count 231, Mean Platelet Volume 6.0L, Neutrophils (%) (Auto) 60.3, Lymphocytes ( %) (Auto) 25.2, Monocytes (%) (Auto) 9.3, Eosinophils (%) (Auto) 4.1H, Basophils (%) (Auto) 1.1, Sodium Level 142, Potassium Level 4.7, Chloride Level 107, Carbon Dioxide Level 29, Anion Gap 6, Blood Urea Nitrogen 15, Creatinine 1.6H, Estimat Glomerular Filtration Rate 50.7, Glucose Level 94, Calcium Level 7.8L Height (Feet): 6 Height (Inches): 1.00 Weight (Pounds): 198 General Appearance: alert EENT: TMs normal Neck: supple Cardiovascular: normal rate Respiratory/Chest: lungs clear Abdomen: normal bowel sounds, non tender, soft Primo Unger MD Sep 26, 2019 11:52
[2019-09-26 12:00] VITALS: BP 115/61
--- NOTE | 2019-09-26 12:35 | Nephrology Progress Note ---
Assessment/Plan Problem List: (1) Acute on chronic renal insufficiency (2) Intractable abdominal pain (3) Duodenal ulcer (4) HTN (hypertension) Assessment Renal failure, acute on chronic Duodenal ulcer, upper GI breathing Intractable abdominal pain History of aortic valve disease status post repair History of alcohol abuse Bullous emphysema Anemia Hypertension Constipation Urine studies Flomax Adjust blood pressure medication IV bolus Monitor renal parameters Abdominal ultrasound results reviewed Echocardiogram ordered Plan Urine studies noted Flomax every night Adjust blood pressure medication done IV bolus given Monitor renal parameters creatinine down to 1.6 Abdominal ultrasound results reviewed Echocardiogram ordered ejection fraction 60% Objective Objective Last 24 Hour Vital Signs Date Time Temp Pulse Resp B/P (MAP) Pulse Ox O2 Delivery O2 Flow Rate FiO2 09/26/19 12:00 98.0 73 20 115/61 (79) 98 09/26/19 08:00 97.7 70 20 103/50 (67) 97 09/26/19 03:53 97.7 66 20 101/45 (63) 96 09/26/19 01:15 97.5 09/26/19 00:02 97.5 83 20 101/58 (72) 96 09/25/19 20:36 97.5 77 18 129/66 (87) 97 09/25/19 16:25 97.7 65 17 132/71 (91) 99 Intake and Output 09/25/19 09/26/19 19:00 07:00 Intake Total 800 ml 360 ml Balance 800 ml 360 ml Intake Oral 800 ml Other 360 ml # Voids 3 3 Laboratory Tests 09/26/19 05:30: White Blood Count 5.0, Red Blood Count 2.57L, Hemoglobin 8.1L, Hematocrit 24.8L , Mean Corpuscular Volume 96, Mean Corpuscular Hemoglobin 31.4H, Mean Corpuscular Hemoglobin Concent 32.6, Red Cell Distribution Width 14.0, Platelet Count 231, Mean Platelet Volume 6.0L, Neutrophils (%) (Auto) 60.3, Lymphocytes ( %) (Auto) 25.2, Monocytes (%) (Auto) 9.3, Eosinophils (%) (Auto) 4.1H, Basophils (%) (Auto) 1.1, Sodium Level 142, Potassium Level 4.7, Chloride Level 107, Carbon Dioxide Level 29, Anion Gap 6, Blood Urea Nitrogen 15, Creatinine 1.6H, Estimat Glomerular Filtration Rate 50.7, Glucose Level 94, Calcium Level 7.8L Height (Feet): 6 Height (Inches): 1.00 Weight (Pounds): 198 Martín Thomson MD Sep 26, 2019 12:35
--- NOTE | 2019-09-26 12:37 | Internal Med Progress Note ---
Subjective Date of Service: Sep 26, 2019 Physician Name Emery Bui Attending Physician Aristides Danielle MD Current Medications Medications (Trade) Dose Ordered Sig/Iona Route PRN Reason Start Time Stop Time Status Last Admin Dose Admin Acetaminophen (Tylenol) 650 mg Q4H PRN ORAL fever 09/20/19 21:15 10/20/19 21:14 Bisacodyl (Dulcolax) 5 mg DAILYPRN PRN ORAL Constipation 09/24/19 09:15 12/23/19 09:14 09/24/19 09:57 Clonidine HCl (Catapres Tab) 0.1 mg Q6H PRN ORAL For High Blood Pressure 09/22/19 09:15 12/21/19 09:14 Dextrose (Dextrose 50%) 25 ml Q30M PRN IV Hypoglycemia 09/20/19 21:15 12/19/19 21:14 Dextrose (Dextrose 50%) 50 ml Q30M PRN IV Hypoglycemia 09/20/19 21:15 12/19/19 21:14 Diphenhydramine HCl (Benadryl) 25 mg Q6H PRN ORAL Itching/Pruritis 09/20/19 21:15 10/20/19 21:14 Docusate Sodium (Colace) 100 mg TWICE A DAY ORAL 09/23/19 11:30 10/23/19 11:29 09/26/19 08:24 Lactulose (Cephulac) 20 gm BID ORAL 09/24/19 10:45 10/24/19 10:44 09/26/19 08:24 Morphine Sulfate (Morphine Sulfate) 2 mg Q4H PRN IVP For Pain 09/20/19 23:15 09/27/19 23:14 09/26/19 00:44 Nitroglycerin (Ntg) 0.4 mg Q5M X 3 DOSES PRN SL Prn Chest Pain 09/20/19 21:15 10/20/19 21:14 Ondansetron HCl (Zofran) 4 mg Q6H PRN IVP Nausea & Vomiting 09/20/19 21:15 10/20/19 21:14 09/23/19 20:04 Pantoprazole (Protonix) 40 mg BID ORAL 09/23/19 18:00 10/23/19 17:59 09/26/19 08:24 Polyethylene Glycol (Miralax) 17 gm HSPRN PRN ORAL Constipation 09/20/19 21:15 10/20/19 21:14 09/23/19 20:04 Sodium Phosphate (Fleet's Sodium Phosl Enema) 133 ml DAILYPRN PRN RECTAL Constipation 09/24/19 09:15 10/24/19 09:14 Tamsulosin HCl (Flomax) 0.4 mg BID ORAL 09/25/19 10:00 10/25/19 20:59 09/26/19 08:24 Temazepam (Restoril) 15 mg HSPRN PRN ORAL Insomnia 09/20/19 21:15 09/27/19 21:14 09/25/19 21:24 Allergies: Coded Allergies: No Known Allergies (Unverified , 09/20/19) ROS Limited/Unobtainable: No Constitutional: Reports: no symptoms HEENT: Reports: no symptoms Cardiovascular: Reports: no symptoms Respiratory: Reports: no symptoms Gastrointestinal/Abdominal: Reports: no symptoms Genitourinary: Reports: no symptoms Neurologic/Psychiatric: Reports: no symptoms Subjective 79 YO M admitted with hematemesis. Now duodenal ulcer. Cover for Int Med-DR Danielle. S/P endoscopy 09/21/19 Objective Last Vital Signs Date Time Temp Pulse Resp B/P (MAP) Pulse Ox O2 Delivery O2 Flow Rate FiO2 09/26/19 12:00 98.0 73 20 115/61 (79) 98 09/25/19 09:00 Room Air 09/21/19 15:20 3 Laboratory Tests Test 09/26/19 05:30 White Blood Count 5.0 K/UL (4.8-10.8) Red Blood Count 2.57 M/UL (4.70-6.10) L Hemoglobin 8.1 G/DL (14.2-18.0) L Hematocrit 24.8 % (42.0-52.0) L Mean Corpuscular Volume 96 FL (80-99) Mean Corpuscular Hemoglobin 31.4 PG (27.0-31.0) H Mean Corpuscular Hemoglobin Concent 32.6 G/DL (32.0-36.0) Red Cell Distribution Width 14.0 % (11.6-14.8) Platelet Count 231 K/UL (150-450) Mean Platelet Volume 6.0 FL (6.5-10.1) L Neutrophils (%) (Auto) 60.3 % (45.0-75.0) Lymphocytes (%) (Auto) 25.2 % (20.0-45.0) Monocytes (%) (Auto) 9.3 % (1.0-10.0) Eosinophils (%) (Auto) 4.1 % (0.0-3.0) H Basophils (%) (Auto) 1.1 % (0.0-2.0) Sodium Level 142 MMOL/L (136-145) Potassium Level 4.7 MMOL/L (3.5-5.1) Chloride Level 107 MMOL/L (98-107) Carbon Dioxide Level 29 MMOL/L (21-32) Anion Gap 6 mmol/L (5-15) Blood Urea Nitrogen 15 mg/dL (7-18) Creatinine 1.6 MG/DL (0.55-1.30) H Estimat Glomerular Filtration Rate 50.7 mL/min (>60) Glucose Level 94 MG/DL (74-106) Calcium Level 7.8 MG/DL (8.5-10.1) L Intake and Output 09/25/19 09/26/19 19:00 07:00 Intake Total 800 ml 360 ml Balance 800 ml 360 ml Intake Oral 800 ml Other 360 ml # Voids 3 3 Objective PHYSICAL EXAMINATION: GENERAL: Patient is awake and responsive, in no acute distress. HEAD AND NECK: Pupils are equal and reactive to light. Extraocular movements intact. Neck was supple. No JVD. LUNGS: Clear. No wheezing or rales. HEART: S1, S2. Regular rhythm. No gallops. ABDOMEN: Soft. Tender in the epigastric area. No rebound tenderness. No fluid shift. EXTREMITIES: No cyanosis, clubbing, or edema NEUROLOGIC: Cranial nerves II through XII grossly normal. Motor is 5/5 all extremities. Gait was not assessed due to patient's status. RECTAL/GENITOURINARY: Refused and deferred. PSYCHIATRIC: Mood and affect is intact. Assessment/Plan Assessment/Plan ASSESSMENT: 1. RUQ Abdominal pain 2. upper GI bleed. 2. History of perforated gastric ulcer. 3. Hypertension. 4. Acute anemia due to the acute blood loss. 5. Acute kidney injury. 6. Aortic valve, status post repair. 7. Prior history of alcohol abuse. 8. Bleeding duodenal ulcer 9. Severe anemia PLAN: 1. Admit patient to medical floor. 2. Dr. Unger=Gastroenterology; S/P endoscopy 09/21/[address] Combs = Infectious Disease, 4. Dr. Cueva=Pulmonary/Critical Care. 5. Code status is Full code. 6. DVT prophylaxis is SCD. 7. Continue Protonix IV b.i.d. and Zofran p.r.n. 8. S/P transfusion 1 unit PRBC 9. refused bowel regimen 10. Discharge home today with protonix Emery Bui MD Sep 26, 2019 12:37
--- NOTE | 2019-09-27 14:06 | Discharge Summary ---
Discharge Summary Discharge Summary _ DATE OF ADMISSION: 09/20/2019 DATE OF DISCHARGE: 09/26/2019 DISCHARGED BY: Dr. Danielle REASON FOR ADMISSION: 79 years old male with past medical history of aortic valve replacement, history of alcohol abuse, sober for 37 years, perforated gastric ulcer , status post repair over 40 years ago, hypertension, presented with 3 weeks of intermittent chest pain associated with right upper quadrant abdominal pain , worsening in the past 24 hours with multiply bloody emesis , described as a bright red blood with clots. Patient complained of chest tightness, worsening when he lie down after meals. Abdominal pain described as sharp ,stabbing ,burning ,10 out of 10 ,without radiation. Patient reported lots of stress in his life. Laboratory work-up revealed no leukocytosis, hemoglobin 9, hematocrit 27.2, platelet count 225. Stable electrolytes. BUN 33, creatinine 1.4. Glucose 107. Total bilirubin 1.1, direct bilirubin 0.2. Urinalysis revealed no evidence of urinary tract infection , +[address] scan of the chest abdomen and pelvis demonstrated no radiopaque cholelithiasis. Possible minimal pericholecystic stranding versus artifact. Mildly thickened bowel which may be underdistention versus enteritis/collapses. No bowel obstruction. No diverticulitis. In emergency department patient received IV fluids, PPI , antiemetic, analgesic, empiric antibiotic and admitted for further management. CONSULTANTS: pulmonary/critical care Dr. Cueva ID specialist Dr. Combs GI specialist Dr. Unger gas pipe layer Dr. Thomson HOSPITAL COURSE: Patient admitted to medical surgical floor. Patient started on PPI . GI specialist followed. The next day hemoglobin dropped to 7.9. Stool for occult blood was positive. Patient undergone EGD that day, 09/20, which revealed duodenal ulceration, most probably the source of bleeding without any adherent clot or visible vessel noted. Status post gastric biopsy. PPI was increased to twice daily. Patient started on clear liquid diet and advanced as tolerated. Pathology of gastric antrum revealed moderate chronic antral and oxyntic gastritis with mild activity. No evidence of H. pylori infection. No intestinal metaplasia , dysplasia or malignancy. Patient was transfused with 1 unit of packed red blood cells . CEA within normal limits. Patient received IV iron x1. Pain management was addressed as needed. Prior to discharge hemoglobin 8.1 , hematocrit 24.8. Diet was slowly advanced as tolerated. Antiemetic provided as needed. Abdominal ultrasound demonstrated no cholelithiasis or evidence of acute cholecystitis. Patient continued on IV fluids. Renal parameters and electrolytes were closely monitored. Electrolytes corrected as needed. Nephrotoxic's were avoided. Acute kidney injury was possibly due to GI bleeding. Flomax continued. Blood pressure was managed with calcium channel arturo and the clonidine was on board as needed for blood pressure spikes. Patient reported constipation . Bowel regimen instituted. Patient remained afebrile, no leukocytosis. ID specialist recommended to keep patient off antibiotics. Aspiration precaution maintained. Supplemental oxygen provided as needed to keep pulse oximetry above 90%. Pulmonary toilet was on board as needed. Patient clinically stabilized and was ready for discharge. FINAL DIAGNOSES: Upper GI bleeding due to duodenal ulcer Status post EGD Bleeding duodenal ulcer Gastritis Peptic ulcer disease Acute anemia of blood loss Bullous emphysema Acute kidney injury on chronic renal insufficiency Hypertension History of aortic valve replacement History of alcohol abuse Constipation DISCHARGE MEDICATIONS: See Medication Reconciliation list. DISCHARGE INSTRUCTIONS: Patient was discharged home. Follow-up with primary care provider in 1 week. Nu Moseley NP Sep 27, 2019 14:06
== END 2019-09-26 13:11 | disposition home or self-care (01) | DRG 378 ==
LOC: EMR 15:53 → 4E 19:04 → EDBEDREQ 20:00
PROC: 30233N1 Transfusion of Nonautologous Red Blood Cells into Peripheral Vein, Percutaneous Approach (ICD-10-PCS; 2019-09-21)
PROC: 0DB78ZX Excision of Stomach, Pylorus, Via Natural or Artificial Opening Endoscopic, Diagnostic (ICD-10-PCS; principal; 2019-09-21 14:50)
PROC: 0DB68ZX Excision of Stomach, Via Natural or Artificial Opening Endoscopic, Diagnostic (ICD-10-PCS; principal; 2019-09-21 14:50)
DX: K26.0 Acute duodenal ulcer with hemorrhage (principal); N17.9 Acute kidney failure, unspecified; D62 Acute posthemorrhagic anemia; I10 Essential (primary) hypertension; Z87.11 Personal history of peptic ulcer disease; K29.71 Gastritis, unspecified, with bleeding; J43.9 Emphysema, unspecified; Z95.2 Presence of prosthetic heart valve; K59.00 Constipation, unspecified; F10.11 Alcohol abuse, in remission
CPT/HCPCS: 36415; 71045; 71260; 74177; 76700; 80048; 80053; 80076; 81003; 82150; 82248; 82270; 82378; 82550; 82607; 82746; 83540; 83550; 83615; 83690; 83735; 83880; 84100; 84133; 84153; 84300; 84484; 84550; 85007; 85025; 85044; 85060; 85610; 85651; 85730; 86140; 86850; 86900; 86901; 86920; 89050; 93005; 93306; 94003; 94150; 96361; 96365; 96375; 99285; J2405; J7030

== ENCOUNTER 2020-05-06 16:54 | Emergency (ER) | payer MEDICARE, BC ==
[~2020-05-06] VITALS: Ht 185.4 cm; Wt 83.9 kg
[~2020-05-06 16:54] MED LIST: NORVASC10 MG ORAL; PROTONIX40 MG ORAL; ZOFRAN4 M3 ORAL
[2020-05-06] MEDS ORDERED: Omnipaque-300 100ml vial INJ PRN (17:00)
--- NOTE | 2020-05-06 17:17 | Emergency Room Report ---
History of Present Illness General Chief Complaint: Nausea, Vomiting, and Diarrhea Source: Patient Present Illness HPI 80-year-old male, past medical history of hypertension presents with diarrhea, nausea, body aches x1 day no aggravating relieving factors severity is moderate, constant no chest pain no shortness of breath no dyspnea on exertion patient presents to the hospital for evaluation and treatment Allergies: Coded Allergies: No Known Allergies (Unverified , 09/20/19) COVID-19 Screening Contact w/high risk pt: No Recent Travel to affected area: No Experienced COVID-19 symptoms?: Yes COVID-19 Testing performed PRINTED CIRCUIT LAYOUT TAPER: No Patient History Past Medical History: see triage record Reviewed Nursing Documentation: PMH: Agreed; PSxH: Agreed Nursing Documentation-PMH Past Medical History: No History, Except For Hx Hypertension: Yes Hx Cancer: No Hx Gastrointestinal Problems: Yes - Perforated gastric ulcer Hx Neurological Problems: No Review of Systems All Other Systems: negative except mentioned in HPI Physical Exam Vital Signs Date Time Temp Pulse Resp B/P (MAP) Pulse Ox O2 Delivery O2 Flow Rate FiO2 05/06/20 17:02 98.2 66 17 193/93 (126) 98 Room Air Sp02 EP Interpretation: reviewed, normal General Appearance: well appearing, no apparent distress, alert Head: normocephalic, atraumatic Eyes: bilateral eye PERRL, bilateral eye EOMI ENT: uvula midline, moist mucus membranes Neck: supple, thyroid normal, supple/symm/no masses Respiratory: lungs clear, no respiratory distress, no retraction, no accessory muscle use Cardiovascular #1: normal peripheral pulses, regular rate, rhythm, no edema, no gallop, no murmur Gastrointestinal: non tender, soft, no guarding, no rebound Musculoskeletal: normal inspection Neurologic: alert, oriented x3 Psychiatric: mood/affect normal Skin: no rash, warm/dry Medical Decision Making Diagnostic Impression: Primary Impression: Nausea, vomiting, and diarrhea ER Course 80-year-old male history of hypertension presents with nausea vomiting diarrhea, differential includes gastroenteritis, appendicitis and diverticulitis Patient resuscitated with 1L of NS Patient felt better, CT scan negative Strict return precautions discussed will start patient on amlodipine for antihypertension disposition home Laboratory Tests Test 05/06/20 17:20 05/06/20 17:50 White Blood Count 7.0 K/UL (4.8-10.8) Red Blood Count 5.20 M/UL (4.70-6.10) Hemoglobin 15.3 G/DL (14.2-18.0) Hematocrit 44.8 % (42.0-52.0) Mean Corpuscular Volume 86 FL (80-99) Mean Corpuscular Hemoglobin 29.4 PG (27.0-31.0) Mean Corpuscular Hemoglobin Concent 34.1 G/DL (32.0-36.0) Red Cell Distribution Width 13.5 % (11.6-14.8) Platelet Count 231 K/UL (150-450) Mean Platelet Volume 6.9 FL (6.5-10.1) Neutrophils (%) (Auto) 69.9 % (45.0-75.0) Lymphocytes (%) (Auto) 17.8 % (20.0-45.0) L Monocytes (%) (Auto) 10.0 % (1.0-10.0) Eosinophils (%) (Auto) 1.1 % (0.0-3.0) Basophils (%) (Auto) 1.1 % (0.0-2.0) Prothrombin Time 10.1 SEC (9.30-11.50) Prothrombin Time INR 0.9 (0.9-1.1) Activated Partial Thromboplast Time 26 SEC (23-33) Sodium Level 134 MMOL/L (136-145) L Potassium Level 4.0 MMOL/L (3.5-5.1) Chloride Level 99 MMOL/L (98-107) Carbon Dioxide Level 25 MMOL/L (21-32) Anion Gap 11 mmol/L (5-15) Blood Urea Nitrogen 17 mg/dL (7-18) Creatinine 1.4 MG/DL (0.55-1.30) H Estimated Glomerular Filtration Rate 58.9 mL/min (>60) Glucose Level 93 MG/DL (74-106) Calcium Level 9.1 MG/DL (8.5-10.1) Total Bilirubin 1.4 MG/DL (0.2-1.0) H Direct Bilirubin 0.2 MG/DL (0.0-0.3) Aspartate Amino Transferase (AST) 31 U/L (15-37) Alanine Aminotransferase (ALT) 31 U/L (12-78) Alkaline Phosphatase 81 U/L (46-116) Total Protein 7.6 G/DL (6.4-8.2) Albumin 3.8 G/DL (3.4-5.0) Globulin 3.8 g/dL Albumin/Globulin Ratio 1.0 (1.0-2.7) Lipase 108 U/L (73-393) Urine Color Pale yellow Urine Appearance Clear Urine pH 6.5 (4.5-8.0) Urine Specific [place] 1.005 (1.005-1.035) Urine Protein Negative (NEGATIVE) Urine Glucose (UA) Negative (NEGATIVE) Urine Ketones Negative (NEGATIVE) Urine Blood Negative (NEGATIVE) Urine Nitrite Negative (NEGATIVE) Urine Bilirubin Negative (NEGATIVE) Urine Urobilinogen Normal MG/DL (0.0-1.0) Urine Leukocyte Esterase Negative (NEGATIVE) CT/MRI/US Diagnostic Results CT/MRI/US Diagnostic Results : Impression Procedure: CT Abdomen Pelvis w/Contrast EXAM: CT Abdomen and Pelvis With Intravenous Contrast CLINICAL HISTORY: ABD PAIN TECHNIQUE: Axial computed tomography images of the abdomen and pelvis with intravenous contrast. CTDI is 8.5 mGy and DLP is 458.5 mGy-cm. One or more of the following dose reduction techniques were used: automated exposure control, adjustment of the mA and/or kV according to patient size, use of iterative reconstruction technique. COMPARISON: 09/20/2019. FINDINGS: Lung bases: Stable thin-walled cysts are identified within the visualized lung bases. Mild hypoventilatory changes. Centrilobular emphysematous changes. No effusion. Status post sternotomy. ABDOMEN: Liver: Scattered hepatic cysts without significant interval change in size. Gallbladder and bile ducts: Unremarkable. No calcified stones. No ductal dilation. Pancreas: Unremarkable. No ductal dilation. Spleen: No splenomegaly. Adrenals: Unremarkable. Kidneys and ureters: No hydronephrosis. Stable 57mm left upper pole renal cyst containing calcifications with internal septations (4: 31). Additional renal cysts appear unchanged in size. Stomach and bowel: Unremarkable. No obstruction. No mucosal thickening. PELVIS: Appendix: Normal appendix (4: 62). Bladder: Unremarkable. Reproductive: Enlarged prostate gland measuring 56 mm (4: 84). ABDOMEN and PELVIS: Intraperitoneal space: Mild nonspecific mesentery edema but no yobany ascites. No free air. No significant fluid collection. Bones/joints: No acute fracture. No dislocation. Lumbar spine degenerative disc disease. Soft tissues: Unremarkable. Vasculature: Atherosclerotic vascular calcifications. No abdominal aortic aneurysm. Lymph nodes: Unremarkable. No enlarged lymph nodes. IMPRESSION: 1. No acute process identified within the abdomen or pelvis. 2. Incidental findings including: Stable Bosniak 2F left renal cyst measuring 57 mm, prostatomegaly, hepatic cysts, emphysematous changes. Dictated By: Musa Rodgers M.D. Electronically Signed By:Musa Rodgers M.D. Signed Date/Time05/06/201912 CC: Dillon Sanders MD Last Vital Signs Date Time Temp Pulse Resp B/P (MAP) Pulse Ox O2 Delivery O2 Flow Rate FiO2 05/06/20 17:02 98.2 66 17 193/93 (126) 98 Room Air Disposition: HOME, SELF-CARE Condition: Stable Scripts Amlodipine Besylate* (AMLODIPINE BESYLATE*) 5 Mg Tablet 5 MG ORAL DAILY for Hypertension, #90 TAB Prov: Dillon Sanders MD 05/06/20 Referrals: NOT CHOSEN IPA/,REFERRING (PCP) [facility] Patient Instructions: Diarrhea, Adult, [id number], Nausea and Vomiting, Adult, [id number] Additional Instructions: The patient was provided with discharge instructions, notified to follow-up with a primary care doctor and or specialist in the next 24-48 hours, and to return to the ED if they have worsening of their symptoms. Please note that this report is being documented using DRAGON technology. This can lead to erroneous entry secondary to incorrect interpretation by the dictating instrument. PLEASE FOLLOW-UP WITH UROLOGY FOR EVALUATION OF CYST IN 1-3 MONTHS Kidneys and ureters: No hydronephrosis. Stable 57mm left upper pole renal cyst containing calcifications with internal septations (4: 31). Dillon Sanders MD May 06, 2020 17:17
--- NOTE | 2020-05-06 17:22 | NUR ---
ED Nurse Note:blood sent to labs
[2020-05-06 18:05] LABS: APPEARANCE,URINE CLEAR; BILIRUBIN, URINE NEGATIVE (NEGATIVE); COLOR,URINE PALE YELLOW; GLUCOSE, URINE (UA) NEGATIVE (NEGATIVE); KETONES,URINE NEGATIVE (NEGATIVE); LEUKOCYTE ESTERASE ,URINE NEGATIVE (NEGATIVE); NITRITE,URINE NEGATIVE (NEGATIVE); PH,URINE 6.5 (4.5-8.0); PROTEIN,URINE NEGATIVE (NEGATIVE); UROBILINOGEN,URINE NORMAL MG/DL (0.0-1.0)
--- NOTE | 2020-05-06 18:05 | NUR ---
ED Nurse Note: urine sent to lab. pt on monitor. no distress noted
[2020-05-06 18:10] LABS: CALCIUM 9.1 MG/DL (8.5-10.1); CREATININE 1.4 MG/DL (0.55-1.30)
[2020-05-06 18:12] LABS: INR 0.9 (0.9-1.1)
[2020-05-06 18:26] LABS: ALBUMIN 3.8 G/DL (3.4-5.0); BILIRUBIN,TOTAL 1.4 MG/DL (0.2-1.0)
[2020-05-06 18:29] LABS: BILIRUBIN,DIRECT 0.2 MG/DL (0.0-0.3)
[2020-05-06 18:58] LABS: BASOPHILS % (AUTO) 1.1 % (0.0-2.0); EOSINOPHILS % (AUTO) 1.1 % (0.0-3.0); HEMATOCRIT 44.8 % (42.0-52.0); HEMOGLOBIN 15.3 G/DL (14.2-18.0); LYMPHOCYTES % (AUTO) 17.8 % (20.0-45.0); MEAN CORPUSCULAR VOLUME 86 FL (80-99); NEUTROPHILS % (AUTO) 69.9 % (45.0-75.0); PLATELET COUNT 231 K/UL (150-450); RED CELL DISTRIBUTION WIDTH 13.5 % (11.6-14.8)
--- NOTE | 2020-05-06 19:13 | Diagnostic Imaging Report ---
EXAM: CT Abdomen and Pelvis With Intravenous Contrast CLINICAL HISTORY: ABD PAIN TECHNIQUE: Axial computed tomography images of the abdomen and pelvis with intravenous contrast. CTDI is 8.5 mGy and DLP is 458.5 mGy-cm. One or more of the following dose reduction techniques were used: automated exposure control, adjustment of the mA and/or kV according to patient size, use of iterative reconstruction technique. COMPARISON: 09/20/2019. FINDINGS: Lung bases: Stable thin-walled cysts are identified within the visualized lung bases. Mild hypoventilatory changes. Centrilobular emphysematous changes. No effusion. Status post sternotomy. ABDOMEN: Liver: Scattered hepatic cysts without significant interval change in size. Gallbladder and bile ducts: Unremarkable. No calcified stones. No ductal dilation. Pancreas: Unremarkable. No ductal dilation. Spleen: No splenomegaly. Adrenals: Unremarkable. Kidneys and ureters: No hydronephrosis. Stable 57mm left upper pole renal cyst containing calcifications with internal septations (4: 31). Additional renal cysts appear unchanged in size. Stomach and bowel: Unremarkable. No obstruction. No mucosal thickening. PELVIS: Appendix: Normal appendix (4: 62). Bladder: Unremarkable. Reproductive: Enlarged prostate gland measuring 56 mm (4: 84). ABDOMEN and PELVIS: Intraperitoneal space: Mild nonspecific mesentery edema but no yobany ascites. No free air. No significant fluid collection. Bones/joints: No acute fracture. No dislocation. Lumbar spine degenerative disc disease. Soft tissues: Unremarkable. Vasculature: Atherosclerotic vascular calcifications. No abdominal aortic aneurysm. Lymph nodes: Unremarkable. No enlarged lymph nodes. IMPRESSION: 1. No acute process identified within the abdomen or pelvis. 2. Incidental findings including: Stable Bosniak 2F left renal cyst measuring 57 mm, prostatomegaly, hepatic cysts, emphysematous changes.
[2020-05-06] MEDS ORDERED: AMLODIPINE BESYL5 MG ORAL (19:25)
[2020-05-06 19:55] VITALS: BP 170/62
--- NOTE | 2020-05-06 19:55 | NUR ---
ER DISCHARGE NOTE: Patient is cleared to be discharged per ERMD, pt is aox4, on room air, with stable vital signs. pt was given dc and prescription instructions, pt was able to verbalize understanding, pt id band and iv site removed without complications. pt is able to ambulate with steady gait. pt took all belongings. Pt left in a private car
== END 2020-05-06 19:55 | disposition home or self-care (01) ==
LOC: EMR 17:05
DX: R11.2 Nausea with vomiting, unspecified (principal); R19.7 Diarrhea, unspecified; I10 Essential (primary) hypertension
CPT/HCPCS: 36415; 74177; 80053; 81003; 82248; 83690; 85025; 85610; 85730; 96360; 99284; J7030; Q9965